=== PATIENT | male | born 1945 | race Caucasian/White ===

== ENCOUNTER 2016-10-23 18:19 | Emergency (ER) | payer MEDICARE ==
[~2016-10-23] VITALS: Ht 177.8 cm; Wt 110.0 kg
[2016-10-23 18:22] VITALS: BP 174/97; PULSE 76; RESP 20; TEMP 98.6; O2SAT 95
[2016-10-23] MEDS ORDERED: LISI-515 PO (21:10)
[2016-10-23] MEDS ORDERED: EFFE150C PO (21:10)
--- NOTE | 2016-10-23 21:55 | PD ---
HPI Chief Complaint: Depression Time Seen by Provider: 21:53 Travel History International Travel<30 days: No Contact w/Intl Traveler<30days: No Traveled to known affect area: No History of Present Illness HPI 71-year-old male with history of hypertension and depression presents to emergency department for evaluation. Patient states that he has had depression since 2010. He was on Effexor 200 mg daily which helped a lot. He states last year him in his primary care provider decided to wean him down and he has not been taking anything since then. He states that he's been going through some stressful times and felt like his depression had gotten worse. He went to [facility] last week to discuss this and he ended up being placed under Gilman act. Patient adamantly denies suicidal homicidal ideations. His is with him who confirms this and that this is not a concern. He was sent to the [facility] psychiatric facility. They started him on 150 mg Effexor there. Patient is concerned because he is not began to feel much better. Denies any suicidal or homicidal ideations. Denies chest or tightness to difficulty breathing. He has no other symptoms to report. PFSH Past Medical History Hx Anticoagulant Therapy: No Arthritis: Yes Depression: Yes Cardiovascular Problems: Yes (HTN) Chemotherapy: No Cerebrovascular Accident: No Diabetes: No Hypertension: Yes Respiratory: No ?: Not Past Surgical History Surgical History: No Previous Surgery Social History Alcohol Use: No Tobacco Use: No Substance Use: No Allergies-Medications (Allergen,Severity, Reaction): Coded Allergies: Aspirin (Verified Allergy, Intermediate, Nausea/Vomiting, 10/23/16) Reported Meds & Prescriptions Reported Meds & Active Scripts Active Reported Effexor XR 24 HR (Venlafaxine HCl) 150 Mg Cap 150 Mg PO DAILY Lisinopril 20 Mg Tab 20 Mg PO DAILY Review of Systems Except as stated in HPI: all other systems reviewed are Neg Physical Exam Narrative GENERAL: Well-nourished male patient, ambulatory and in no acute distress SKIN: Focused skin assessment warm/dry. HEAD: Atraumatic. Normocephalic. EYES: Pupils equal and round. No scleral icterus. No injection or drainage. ENT: No nasal bleeding or discharge. Mucous membranes pink and moist. NECK: Trachea midline. No JVD. CARDIOVASCULAR: Regular rate and rhythm. No murmur appreciated. RESPIRATORY: No accessory muscle use. Clear to auscultation. Breath sounds equal bilaterally. GASTROINTESTINAL: Abdomen soft, non-tender, nondistended. Hepatic and splenic margins not palpable. MUSCULOSKELETAL: No obvious deformities. No clubbing. No cyanosis. No edema. NEUROLOGICAL: Awake and alert. No obvious cranial nerve deficits. Motor grossly within normal limits. Normal speech. Data Data Last Documented VS Vital Signs Date Time Temp Pulse Resp B/P Pulse Ox O2 Delivery O2 Flow Rate FiO2 10/23/16 18:22 98.6 76 20 174/97 95 Room Air MDM Medical Decision Making Medical Screen Exam Complete: Yes Emergency Medical Condition: Yes Medical Record Reviewed: Yes Differential Diagnosis Disorder versus personality disorder versus adjustment reaction disorder versus depression NOS Narrative Course 71-year-old male presents to the emergency department for evaluation, requesting that his Effexor be increased. Patient appears without distress. I discussed with him the importance of a primary care provider psychiatric provider following up with him and adjusting medication as needed. I also offered reassurance that he likely will not feel the effects of the medication for 3-4 weeks. He verbalized understanding. He'll be provided a packet for outpatient resources to contact for follow-up. He agrees to return immediately with any acute worsening symptoms Diagnosis Primary Impression: Depression Qualified Code: F32.9 - Depression, unspecified depression type Referrals: Primary Care Physician Patient Instructions: Depression (ED), General Instructions Additional Instructions: Continue taking medication as prescribed Review resource packet and follow up with psychiatrist/primary care provider Return to ED with acute worsening of symptoms Med/Other Pt SpecificInfo: No Change to Meds Disposition: 01 DISCHARGE HOME Condition: Stable SebastianAdeola ALONSO October 23, 2016 21:55
== END 2016-10-23 22:27 | disposition home or self-care (01) ==
LOC: NEPD 18:19
DX: F32.9 Major depressive disorder, single episode, unspecified (principal); I10 Essential (primary) hypertension
CPT/HCPCS: 99282

== ENCOUNTER 2016-10-25 13:39 | Emergency (ER) | payer MEDICARE ==
[~2016-10-25] VITALS: Ht 177.8 cm; Wt 110.0 kg
[~2016-10-25 13:39] MED LIST: EFFE150C PO; LISI-515 PO
[2016-10-25 13:41] VITALS: BP 174/91; PULSE 76; RESP 15; TEMP 98.4; O2SAT 99
--- NOTE | 2016-10-25 13:46 | PD ---
Physical Exam Time Seen by Provider: 13:42 Narrative 71yo M c/o depression. Takes Effexor and feels like its not working. Denies SI or HI. Has no emergent medical complaints. VS reviewed. Patient seen in triage. Awaiting bed placement. Data Data Last Documented VS Vital Signs Date Time Temp Pulse Resp B/P Pulse Ox O2 Delivery O2 Flow Rate FiO2 10/25/16 13:41 98.4 76 15 174/91 99 MDM Supervised Visit with EMMANUELLE: Marianne Hollis October 25, 2016 13:46
--- NOTE | 2016-10-25 14:45 | PD ---
HPI Chief Complaint: Depression Time Seen by Provider: 14:35 Travel History International Travel<30 days: No Contact w/Intl Traveler<30days: No Traveled to known affect area: No History of Present Illness HPI This is a 71-year-old male with history of hypertension, depression. He presents requesting psychiatric evaluation. He reports a history of depression ever since 2010. Previously he was on Effexor 200 mg daily which seem to be helping a lot. He weaned himself off the Effexor in October 2015. He moved here from [place] in July 2016. He reports for the past 3-4 weeks has been feeling increasing depression. Having difficulty sleeping. This issue at [facility] last week and he ended up being placed under Gilman act and transfer to the [facility]. He reports that at the [facility] he was started on Effexor 150 mg once daily. He was seen here again on October 23 and was encouraged to continue using his Effexor and to follow-up as an outpatient with a psychiatrist. He returns here today because he has been feeling persistent depression, difficulty sleeping. Over the past few nights he has been staying with his cousin in order to "have company." He denies any suicidal or homicidal thoughts but he is primarily here because he does not want things to get to that point. He denies any drug or alcohol use. He has not yet attempted outpatient follow-up with primary care or psychiatry because he "hasn't had time." He has no other complaints. PFSH Past Medical History Hx Anticoagulant Therapy: No Arthritis: Yes Depression: Yes Cardiovascular Problems: Yes (HTN) Chemotherapy: No Cerebrovascular Accident: No Diabetes: No Hypertension: Yes Respiratory: No ?: Not Social History Alcohol Use: No Tobacco Use: No Substance Use: No Allergies-Medications (Allergen,Severity, Reaction): Coded Allergies: Aspirin (Verified Allergy, Intermediate, Nausea/Vomiting, 10/25/16) Reported Meds & Prescriptions Reported Meds & Active Scripts Active Reported Effexor XR 24 HR (Venlafaxine HCl) 150 Mg Cap 150 Mg PO DAILY Lisinopril 20 Mg Tab 20 Mg PO DAILY Review of Systems Except as stated in HPI: all other systems reviewed are Neg Physical Exam Narrative GENERAL: Pleasant well-developed well-nourished male in no acute distress SKIN: Warm and dry. HEAD: Atraumatic. Normocephalic. EYES: Pupils equal and round. No scleral icterus. No injection or drainage. ENT: No nasal bleeding or discharge. Mucous membranes pink and moist. NECK: Trachea midline. No JVD. CARDIOVASCULAR: Regular rate and rhythm. No murmur appreciated. RESPIRATORY: No accessory muscle use. Clear to auscultation. Breath sounds equal bilaterally. GASTROINTESTINAL: Abdomen soft, non-tender, nondistended. Hepatic and splenic margins not palpable. MUSCULOSKELETAL: No obvious deformities. No clubbing. No cyanosis. No edema. NEUROLOGICAL: Awake and alert. No obvious cranial nerve deficits. Motor grossly within normal limits. Normal speech. PSYCHIATRIC: Appropriate mood and affect; insight and judgment normal. Data Data Last Documented VS Vital Signs Date Time Temp Pulse Resp B/P Pulse Ox O2 Delivery O2 Flow Rate FiO2 10/25/16 13:41 98.4 76 15 174/91 99 Orders Complete Blood Count With Diff (10/25/16 14:39) Comprehensive Metabolic Panel (10/25/16 14:39) Psych Screen (10/25/16 14:39) Drug Screen, Random Urine (10/25/16 14:39) Alcohol (Ethanol) (10/25/16 14:39) Labs Laboratory Tests Test 10/25/16 14:55 White Blood Count 12.0 TH/MM3 Red Blood Count 5.31 MIL/MM3 Hemoglobin 15.4 GM/DL Hematocrit 46.1 % Mean Corpuscular Volume 86.8 FL Mean Corpuscular Hemoglobin 29.1 PG Mean Corpuscular Hemoglobin 33.5 % Concent Red Cell Distribution Width 14.1 % Platelet Count 241 TH/MM3 Mean Platelet Volume 8.3 FL Neutrophils (%) (Auto) 71.4 % Lymphocytes (%) (Auto) 18.4 % Monocytes (%) (Auto) 8.3 % Eosinophils (%) (Auto) 1.3 % Basophils (%) (Auto) 0.6 % Neutrophils # (Auto) 8.6 TH/MM3 Lymphocytes # (Auto) 2.2 TH/MM3 Monocytes # (Auto) 1.0 TH/MM3 Eosinophils # (Auto) 0.2 TH/MM3 Basophils # (Auto) 0.1 TH/MM3 CBC Comment DIFF FINAL Differential Comment Sodium Level 137 MEQ/L Potassium Level 4.1 MEQ/L Chloride Level 104 MEQ/L Carbon Dioxide Level 24.3 MEQ/L Anion Gap 9 MEQ/L Blood Urea Nitrogen 17 MG/DL Creatinine 1.08 MG/DL Estimat Glomerular Filtration 67 ML/MIN Rate Random Glucose 114 MG/DL Calcium Level 9.3 MG/DL Total Bilirubin 0.5 MG/DL Aspartate Amino Transf 34 U/L (AST/SGOT) Alanine Aminotransferase 45 U/L (ALT/SGPT) Alkaline Phosphatase 82 U/L Total Protein 7.7 GM/DL Albumin 3.6 GM/DL Ethyl Alcohol Level LESS THAN 3 MG/DL MDM Medical Decision Making Medical Screen Exam Complete: Yes Emergency Medical Condition: Yes Medical Record Reviewed: Yes Differential Diagnosis Major depressive disorder, depressive disorder not otherwise specified, acute psychosis, substance induced mood disorder, adjustment reaction Narrative Course 71-year-old male with history of depression presents for evaluation of worsening depression, difficulty sleeping, currently on Effexor 150 mg started last week. Had a discussion with the patient in regards to the proper place to follow-up for this issue. The patient whether or not she would prefer to follow up with outpatient psychiatry versus psychiatry screening here at this time and he is requesting psychiatric screen. Mental health screening discussed with the patient. Psychiatric screen ordered. The patient is medically cleared for psychiatric disposition. Diagnosis Primary Impression: Depression Qualified Code: F32.9 - Depression, unspecified depression type Ag Pagan October 25, 2016 14:45
[2016-10-25 15:03] LABS: AUTOMATED NEUTROPHIL # 8.6 TH/MM3 (1.8-7.7); BASOPHIL # 0.1 TH/MM3 (0-0.2); BASOPHIL % 0.6 % (0.0-2.0); EOSINOPHIL # 0.2 TH/MM3 (0-0.4); EOSINOPHIL % 1.3 % (0.0-4.0); HEMATOCRIT 46.1 % (39.0-51.0); HEMO FLAGS DIFF FINAL; LYMPH % 18.4 % (9.0-44.0); LYMPHOCYTE # 2.2 TH/MM3 (1.0-4.8); MEAN CELL VOLUME 86.8 FL (80.0-100.0); MEAN CORPUSCULAR HEMOGLOBIN 29.1 PG (27.0-34.0); MEAN CORPUSCULAR HGB CONC 33.5 % (32.0-36.0); MONO % 8.3 % (0.0-8.0); NEUT % 71.4 % (16.0-70.0); PLATELET COUNT 241 TH/MM3 (150-450); RED BLOOD COUNT 5.31 MIL/MM3 (4.50-5.90); RED CELL DISTRIBUTION WIDTH 14.1 % (11.6-17.2)
[2016-10-25 15:24] LABS: ANION GAP 9 MEQ/L (5-15); AST (GOT) 34 U/L (15-37); BICARBONATE 24.3 MEQ/L (21.0-32.0); CHLORIDE 104 MEQ/L (98-107); GLOMERULAR FILTRATION RATE 67 ML/MIN (>89); POTASSIUM 4.1 MEQ/L (3.5-5.1); SODIUM (NA) 137 MEQ/L (136-145)
[2016-10-25 15:28] LABS: ALKALINE PHOSPHATASE 82 U/L (45-117); ALT (GPT) 45 U/L (12-78); BLOOD UREA NITROGEN 17 MG/DL (7-18); TOTAL BILIRUBIN ADULT 0.5 MG/DL (0.2-1.0)
[2016-10-25 17:26] LABS: AMPHETAMINE, URINE NEG (NEG); BARBITURATES, URINE NEG (NEG); COCAINE, URINE NEG (NEG)
[2016-10-25 18:39] VITALS: BP 169/59; PULSE 66; RESP 20; TEMP 96.9
[2016-10-25 22:00] VITALS: BP 167/95; PULSE 60; RESP 18; O2SAT 98
[2016-10-26 02:20] VITALS: BP 130/74; PULSE 58; RESP 19; O2SAT 97
[2016-10-26 06:23] VITALS: BP 156/82; PULSE 61; RESP 19; O2SAT 95
[2016-10-26 11:20] VITALS: BP 159/73; PULSE 69; RESP 20; TEMP 96.7; O2SAT 99
--- NOTE | 2016-10-26 11:52 | PD.CONS ---
Provisional Diagnosis Admission Date 10/26/2016 [place] I. 1. Adjustment disorder with depressed mood [place] II. Deferred [place] V. GAF is 60 presently History of Present Illness Service Psychiatry Consult Requested By ED Reason for Consult Voluntary psychiatric evaluation Primary Care Physician No Primary Care Physician HPI Mr. Ruiz is a 71-year-old male with a reported history of depression who presents on a voluntary basis for psychiatric evaluation. He was recently hospitalized apparently at the [facility]. Reviewing the electronic medical record, I note that he was seen about 3 days ago by the ED provider for psychiatric complaints and was discharged from the ED. Patient seen and examined. Chart reviewed. Case discussed with nurse in the J- pod. There has been no evidence of any suicidality or homicidality what patient has been under observation in the J-pod. On my examination this morning , the patient says that he came here to get something for sleep. He says that his sleep is somewhat chronically poor and his energy level is low and he feels fatigued. Mood is mildly depressed. He denies any suicidal or homicidal ideation, intent or plan on direct questioning. He denies audiovisual hallucinations. I can elicit no delusional beliefs. I can elicit no hypomanic or manic symptoms. He does describe some anxious rumination. The remainder of the psychiatric ROS is negative. Past psychiatric history: Patient reports he was diagnosed with depression in 2010. He is not currently under the care of an outpatient psychiatrist. He was recently discharged from the [facility] on 150 mg of Effexor XR. He denies any history of suicide attempts. Family history: Patient denies any family history of mental illness or suicide. Chemical dependency history: The patient denies a history of abuse of drugs or alcohol. Social history: The patient resides in [place]. He is originally from [place]. He reports that he lives alone and is . He has a daughter from whom he is estranged. He is retired. He is high school educated. 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 He denies any legal history. He denies any access to guns or firearms. Review of Systems Except as stated in HPI: all other systems reviewed are Neg Past Family Social History Coded Allergies: Aspirin (Verified Allergy, Intermediate, Nausea/Vomiting, 10/25/16) Past Medical History Includes a history of renal cancer and hypertension as well as foot deformity Reported Medications Venlafaxine ER 24 HR (Effexor XR 24 HR)150 Mg [id number] Mg PO DAILY #30 CAP Ref 0 10/23/16 Lisinopril 20 Mg Tab20 Mg PO DAILY #30 TAB Ref 0 10/23/16 Family History See above Social History See above Patient's Strengths (min. 2) Attending to basic needs. Verbally fluent. Physical Exam Physical examination completed by ED provider. On my examination today, the patient appears to be in no acute physical distress. He appears well-nourished and well-developed. No evidence of ADL deficit. No abnormal motor movements noted. Labs and vital signs reviewed: Vital Signs Vital Signs Date Time Temp Pulse Resp B/P Pulse Ox O2 Delivery O2 Flow Rate FiO2 10/26/16 11:20 96.7 69 20 159/73 99 Room Air Lab Results Item Value Date Time White Blood Count 12.0 TH/MM3 H 10/25/16 1455 Hemoglobin 15.4 GM/DL 10/25/16 1455 Platelet Count 241 TH/MM3 10/25/16 1455 Sodium Level 137 MEQ/L 10/25/16 1455 Potassium Level 4.1 MEQ/L 10/25/16 1455 Chloride Level 104 MEQ/L 10/25/16 1455 Carbon Dioxide Level 24.3 MEQ/L 10/25/16 1455 Blood Urea Nitrogen 17 MG/DL 10/25/16 1455 Creatinine 1.08 MG/DL 10/25/16 1455 Aspartate Amino Transf (AST/SGOT) 34 U/L 10/25/16 1455 Alanine Aminotransferase (ALT/SGPT) 45 U/L 10/25/16 1455 Alkaline Phosphatase 82 U/L 10/25/16 1455 Urine Opiates Screen NEG 10/25/16 1652 Urine Barbiturates Screen NEG 10/25/16 1652 Urine Amphetamines Screen NEG 10/25/16 1652 Urine Benzodiazepines Screen NEG 10/25/16 1652 Urine Cocaine Screen NEG 10/25/16 1652 Urine Cannabinoids Screen NEG 10/25/16 1652 Ethyl Alcohol Level LESS THAN 3 MG/DL 10/25/16 1455 Mental Status Examination Patient is in hospital gown. He is well groomed. He is maintaining basic hygiene. He is awake and alert and oriented to person, hospital and approximate date. No evidence of delirium. No abnormal motor movements noted. Speech is within normal limits for rate, tone and volume. Language and fund of knowledge seem average. Mood is reportedly somewhat depressed and affect is consistent with stated mood. Thought process linear. No loosening of associations. No evident delusions. Denies audiovisual hallucinations. Denies suicidal or homicidal ideation, intent or plan. Insight and judgment are fair. Assessment & Plan Problem List: (1) Adjustment disorder with depressed mood ICD Code: F43.21 Assessment & Plan This is a 71-year-old male with psychiatric history as detailed above who presents voluntarily to the psychiatric emergency room for evaluation. On my examination today, the patient reports some lingering depressive symptomatology, apparently not fully resolved following his recent discharge from the [facility]. However, the patient is presently denying suicidal or homicidal ideation, intent or plan, and I assess his risk for suicide and violence at lower imminent risk after weighing the acute, chronic, and protective factors and based on the available evidence. He appears to be attending to his basic needs. There is no evidence of any severely unstable mental illness in this patient at this time. Consequently, I do not believe that the patient requires inpatient psychiatric services at this time. He does need to become established with an outpatient psychiatric provider. I have instructed the nursing staff to provide the patient with the appropriate referrals. Patient should continue with his venlafaxine and follow-up on an outpatient basis. I counseled the patient regarding warning signs for me to return to the psychiatric emergency room as part of the general safety plan. Discharge Planning Psychiatrically cleared for discharge from the ED. OP psychiatric follow up. Request HC Surrog/Guard Advoc?: No Gregg Miller MD October 26, 2016 11:52
== END 2016-10-26 15:22 | disposition home or self-care (01) ==
LOC: NEPD 13:39 → NEPJ 10-26 15:22
DX: F32.9 Major depressive disorder, single episode, unspecified (principal); F43.21 Adjustment disorder with depressed mood; I10 Essential (primary) hypertension
CPT/HCPCS: 80053; 80307; 85025; 99283

== ENCOUNTER 2016-10-27 10:20 | Inpatient (IN) | payer MEDICARE ==
[~2016-10-27] VITALS: Ht 182.9 cm; Wt 100.0 kg
[2016-10-27 10:22] VITALS: BP 125/88; PULSE 82; RESP 20; TEMP 97.9; O2SAT 95
[2016-10-27 10:54] VITALS: BP 165/94; PULSE 68; RESP 16; TEMP 97.4; O2SAT 98
--- NOTE | 2016-10-27 13:00 | PD ---
HPI Chief Complaint: Suicide Ideation/Attempt Time Seen by Provider: 12:55 Travel History International Travel<30 days: No Contact w/Intl Traveler<30days: No Traveled to known affect area: No History of Present Illness HPI 71-year-old male that presents to the ED for evaluation of suicidal ideation. Patient has a chronic history of depression. Patient actually has been here 3 times in the past couple weeks. Patient states that he suicidal and has a plan. He denies any chest pain or shortness of breath. He has a chronic-like deformity to his right ankle. Denies any numbness, tilling, weakness. States he has a history of hypertension problems for which he takes medication. He denies any recent injuries. No cuts. Allergies to aspirin. No abdominal pain. No nausea or vomiting. No diarrhea. Patient states that he has a plan but he would not tells wants. He was seen here just 2 days ago and apparently he was concerned about insomnia. Patient was seen by psychiatrist and released. Symptoms appear to be ongoing. PFSH Past Medical History Hx Anticoagulant Therapy: No Arthritis: Yes Depression: Yes Cancer: Yes (LEFT KIDNEY) Cardiovascular Problems: Yes (HTN) Chemotherapy: No Cerebrovascular Accident: No Diabetes: No Hypertension: Yes Respiratory: No Past Surgical History Genitourinary Surgery: Yes (LEFT NEPHRECTOMY) Social History Alcohol Use: No Tobacco Use: No Substance Use: No Allergies-Medications (Allergen,Severity, Reaction): Coded Allergies: Aspirin (Verified Allergy, Intermediate, Nausea/Vomiting, 10/27/16) Reported Meds & Prescriptions Reported Meds & Active Scripts Active Reported Effexor XR 24 HR (Venlafaxine HCl) 150 Mg Cap 150 Mg PO DAILY Lisinopril 20 Mg Tab 20 Mg PO DAILY Review of Systems Except as stated in HPI: all other systems reviewed are Neg Physical Exam Narrative GENERAL: SKIN: Warm and dry. HEAD: Atraumatic. Normocephalic. EYES: Pupils equal and round 4 mm) accommodation. No scleral icterus. No injection or drainage. ENT: No nasal bleeding or discharge. Mucous membranes pink and moist. Tongue is midline. No uvula deviation. NECK: Trachea midline. No JVD. CARDIOVASCULAR: Regular rate and rhythm. No murmurs, S3, S4. RESPIRATORY: No accessory muscle use. Clear to auscultation. Breath sounds equal bilaterally. GASTROINTESTINAL: Abdomen soft, non-tender, nondistended. Hepatic and splenic margins not palpable. MUSCULOSKELETAL: Extremities without clubbing, cyanosis, or edema. No obvious deformities. Full range of motion of the upper and lower extremities bilaterally. 2+ pulses bilaterally. 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 2+ pulses bilaterally. NEUROLOGICAL: Awake and alert. No obvious cranial nerve deficits. Motor grossly within normal limits. Five out of 5 muscle strength in the arms and legs. Normal speech. PSYCHIATRIC: Depressed mood and affect; insight and judgment normal. Data Data Last Documented VS Vital Signs Date Time Temp Pulse Resp B/P Pulse Ox O2 Delivery O2 Flow Rate FiO2 10/27/16 10:54 97.4 68 16 165/94 98 10/27/16 10:22 Room Air Orders Drug Screen, Random Urine (10/27/16 11:26) Psych Screen (10/27/16 11:26) MDM Medical Decision Making Medical Screen Exam Complete: Yes Emergency Medical Condition: Yes Medical Record Reviewed: Yes Differential Diagnosis Depression versus suicidal ideation versus anxiety versus adjustment disorder versus mood disorder versus bipolar disorder versus schizophrenia versus paranoid disorder versus psychosis versus substance abuse versus alcohol abuse versus alcohol induced psychosis versus homicidality addition versus cutting versus personality disorder Narrative Course 71-year-old male that presents to the ED for evaluation of psych. Patient was properly examined and was found to have signs and symptoms consistent with psychiatric illness. No sign of acute medical distress. Patient was just seen here 2 days ago. Patient had normal blood work. I do not see any need for new labs other than drug screen as patient has not been here more than 2 days ago. Patient also had blood work done 2 days prior to that which was all normal. Patient will be medically clear. Okay to be seen by psych.Mental health screening was discussed with the patient. 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
[2016-10-27 16:46] VITALS: BP 129/66; PULSE 65; RESP 18; O2SAT 98
[2016-10-27 17:00] VITALS: BP 174/107; PULSE 68; RESP 18; TEMP 97.7; O2SAT 97
[2016-10-27 17:04] VITALS: BP 174/107; PULSE 68; RESP 18; TEMP 97.7; O2SAT 97
[2016-10-27] MEDS ORDERED: cloNIDine HCL 0.2 MG TAB PO ONE (17:15)
[2016-10-27] MEDS ORDERED: LORazepam 2 MG/ML VIAL - age > 65 yrs IM PRN (18:00)
[2016-10-27] MEDS ORDERED: ACETAMINOPHEN 325 MG TAB PO PRN (18:00)
[2016-10-27] MEDS ORDERED: ALUMINUM/MAGNESIUM/SIMETH 30 ML CUP PO PRN (18:00)
[2016-10-27] MEDS ORDERED: diphenhydrAMINE HCL 50 MG/ML VIAL - HS PRN IM (18:00)
[2016-10-27] MEDS ORDERED: MAGNESIUM HYDROXIDE SUSP 30 ML CUP PO PRN (18:00)
[2016-10-27 18:03] VITALS: BP 149/76; PULSE 70
[2016-10-27] MEDS: diphenhydrAMINE HCL 50 MG CAP - HS PRN PO (21:23)
[2016-10-28 05:26] VITALS: BP 133/79; PULSE 69; TEMP 98.2; O2SAT 97
[2016-10-28] MEDS: VENLAFAXINE HCL XR 75 MG CAP PO SCH (08:09)
[2016-10-28] MEDS ORDERED: LISINOPRIL 20 MG TAB PO SCH (09:00)
[2016-10-28 10:56] LABS: ANION GAP 9 MEQ/L (5-15); BICARBONATE 25.8 MEQ/L (21.0-32.0); BLOOD UREA NITROGEN 23 MG/DL (7-18); CHLORIDE 103 MEQ/L (98-107); GLOMERULAR FILTRATION RATE 58 ML/MIN (>89); POTASSIUM 4.1 MEQ/L (3.5-5.1); SODIUM (NA) 138 MEQ/L (136-145)
[2016-10-28 10:58] LABS: HDL CHOLESTEROL 30.1 MG/DL (40.0-60.0); LDL CHOLESTEROL 95 MG/DL (0-99)
[2016-10-28 13:15] LABS: HEMOGLOBIN A1b 2.2 %; HEMOGLOBIN Ao 82.2 %; HEMOGLOBIN LA1C 2.6 %; HEMOGLOBIN P3 4.2 %
[2016-10-28] MEDS ORDERED: MAGNESIUM HYDROXIDE SUSP 30 ML CUP PO PRN (13:45)
[2016-10-28] MEDS ORDERED: ACETAMINOPHEN 325 MG TAB PO PRN (13:45)
[2016-10-28] MEDS ORDERED: hydrOXYzine HCL 50 MG TAB PO PRN (13:45)
[2016-10-28] MEDS ORDERED: ALUMINUM/MAGNESIUM/SIMETH 30 ML CUP PO PRN (13:45)
[2016-10-28] MEDS ORDERED: VENLAFAXINE HCL XR 75 MG CAP PO SCH (14:00)
--- NOTE | 2016-10-28 14:02 | HHI.HP ---
Provisional Diagnosis Admission Date October 27, 2016 at 16:43 [place]. 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 Express and informed consent means consent voluntarily given in writing, by a competent person, after sufficient explanation and disclosure of the subject matter involved to enable the person to make a knowing and willful decision without any element of force, fraud, deceit, duress, or other form of constraint or coercion. This person is 18 years of age or older, is not now known to be incompetent to consent to treatment with a guardian advocate, and does not have a health care surrogate or proxy currently making medical treatment decisions. I have found this person to be one of the following: xx[] Competent to provide express and informed consent, as defined above, for voluntary admission to this facility and is competent to provide express and informed consent for treatment. He/she has the consistent capacity to make well reasoned, willful, and knowing decisions concerning his or her medical or mental health treatment. The person fully and consistently understands the purpose of the admission for examination/placement and is fully capable of personally exercising all rights assured under [place] Incompetent to provide express and informed consent to voluntary admission, and this is incompetent to provide express and informed consent to treatment. The person must be transferred to involuntary status and a petition for a guardian advocate filed with the Circuit Court. [] Refusing to provide express and informed consent to voluntary admission but is competent to provide express and informed consent for treatment. The person must be discharged or transferred to involuntary status. Form shall be completed within 24 hours of a person's arrival at the receiving facility and filed in the clinical record of each person: 1. Admitted on a voluntary basis 2. Permitted to provide express and informed consent to his/her own treatment 3. Allowed to transfer from involuntary to voluntary status 4. Prior to permitting a person to consent to his or her own treatment after having been previously found incompetent to consent to treatment. History of Present Illness Capacity: Has Capacity HPI Patient is 71-year-old white male who moved here from [place] about 7 months ago to be closer to family. He also has a history of depression had fair response with 20 and 20 mg of Effexor over a number of years. In conjunction with his clinician he weaned himself off of that medication. There is been stress with him with the of his second estrangement from his daughter and the move. This is led to recurrence of his depression and reinstitution of the Effexor a few weeks ago the dose now at 150 mg. However the patient states he has had continued depression with intermittent suicidal ideation, marked initial and mid insomnia with a.m. anergy, decreased energy increased irritability, though he denies voices or visions with this he denies any alcohol or drug use with this. He was initially seen at [facility] a few weeks ago leading to a 1 week stay at [facility] which he said was not helpful at all, he has had multiple visits to our ED and was seen by Dr. Miller in consultation a few days ago and released. However at this time he says he is feeling much more fragile though denying suicidality now. He does state the sleep issues are becoming more more prevalent with. Patient denies any prior physical or sexual abuse, denies any history of alcohol or drug abuse, denies any family history of mental illness. At the present time patient does meet criteria for a brief inpatient psychiatric hospitalization to help stabilize and assess his medications, to further assess his suicidality. We will continue his Effexor at 150 mg daily, will add Elavil 25 mg at at bedtime, will have her [facility] assess patient for possibility of improving or repairing or replacing his brace. Patient states he has seen an orthopedist in [place] who was in the process of evaluating him for some type of surgical repair on his right ankle Review of Systems Constitutional: DENIES: Diaphoretic episodes, Fatigue, Fever, Weight gain, Weight loss, Chills, Dizziness, Change in appetite, Night Sweats Endocrine: DENIES: Heat/cold intolerance, Polydipsia, Polyuria, Polyphagia Eyes: DENIES: Blurred vision, Diplopia, Eye inflammation, Eye pain, Vision loss , Photosensitivity, Double Vision Ears, nose, mouth, throat: DENIES: Tinnitus, Hearing loss, Vertigo, Nasal discharge, Oral lesions, Throat pain, Hoarseness, Ear Pain, Running Nose, Epistaxis, Sinus Pain, Toothache, Odynophagia Respiratory: DENIES: Apneas, Cough, Snoring, Wheezing, Hemoptysis, Sputum production, Shortness of breath Cardiovascular: DENIES: Chest pain, Palpitations, Syncope, Dyspnea on Exertion , PND, Lower Extremity Edema, Orthopnea, Claudication Gastrointestinal: DENIES: Abdominal pain, Black stools, Bloody stools, Constipation, Diarrhea, Nausea, Vomiting, Difficulty Swallowing, Anorexia Genitourinary: DENIES: Sexual dysfunction, Urinary frequency, Urinary incontinence, Urgency, Hematuria, Dysuria, Nocturia, Penile Discharge, Testicular Pain, Testicular Swelling Musculoskeletal: DENIES: Joint pain, Muscle aches, Stiffness, Joint Swelling, Back pain, Neck pain Integumentary: DENIES: Abnormal pigmentation, Nail changes, Pruritus, Rash Hematologic/lymphatic: DENIES: Bruising, Lymphadenopathy Immunologic/allergic: DENIES: Eczema, Urticaria Neurologic: DENIES: Abnormal gait, Headache, Localized weakness, Paresthesias, Seizures, Speech Problems, Tremor, Poor Balance Psychiatric: COMPLAINS OF: Depression, Suicidal Ideation Past Psych History Psychological trauma history Denies physical or sexual abuse Violence risk - others (6 mos) Low Violence risk - self (6 mos) Low Substance Abuse History Drugs/Alcohol past 12 months Denies Past Family Social History Coded Allergies: Aspirin (Verified Allergy, Intermediate, Nausea/Vomiting, 10/27/16) Past Medical History Patient medically cleared ED Reported Medications Venlafaxine ER 24 HR (Effexor XR 24 HR)150 Mg Aoi136 Mg PO DAILY #30 CAP Ref 0 10/23/16 Lisinopril 20 Mg Tab20 Mg PO DAILY #30 TAB Ref 0 10/23/16 Current Medications Medications (Trade) Dose Ordered Sig/Patty Route Start Time Stop Time Status Last Admin (Ativan) 0.5 mg Q12H PRN PO 10/27/16 18:00 (Ativan Inj) 0.5 mg Q12H PRN IM 10/27/16 18:00 (Benadryl) 50 mg HS PRN PO 10/27/16 18:00 10/27/16 21:23 (Benadryl Inj) 50 mg HS PRN IM 10/27/16 18:00 (Tylenol) 650 mg Q4H PRN PO 10/27/16 18:00 (Milk Of Magnesia Liq) 30 ml DAILY PRN PO 10/27/16 18:00 (Mag-Al Plus Susp Liq) 30 ml Q6H PRN PO 10/27/16 18:00 (Prinivil) 20 mg DAILY PO 10/28/16 09:00 10/28/16 08:09 (Effexor Xr) 150 mg DAILY PO 10/28/16 09:00 10/28/16 08:09 Family History No history mental health or addictions and family Social History Patient once once has adult daughter he is somewhat estranged from Patient's Strengths (min. 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 he is calm cooperative with good eye contact occasional small smile Appearance Somewhat scruffy appearance Speech: Unremarkable Orientation: x3 Memory: Unremarkable Thought Process: Logical, Organized Thought Content: Unremarkable Language [place] [employer] Good Hallucination Type: None Attention and Concentration: Good Suicidal Ideation: Yes (has had some vague intermittent suicidal ideation denying at the present time) Previous Suicide Attempts: No Homicidal Ideation: No Previous Homicide Attempts: No Insight: Fair Affect: Other (good range intensity) Mood: Euthymic (to moderately dysphoric) Motor Activity: Abnormal gait-specify (patient is abnormal right ankle) Assessment & Plan Problem List: (1) Major depressive disorder, recurrent severe without psychotic features ICD Code: F33.2 Assessment & Plan Estimated LOS: 3-4 days patient meets criteria for brief inpatient stay to address his medications and assess his suicidality. Continue medications, adding Elavil 25 mg at at bedtime, also have the [facility] assess patient's right ankle Discharge Planning To be determined Request HC Surrog/Guard Advoc?: David Berrios MD October 28, 2016 14:02
[2016-10-28] MEDS: LISINOPRIL 20 MG TAB PO SCH (16:05)
--- NOTE | 2016-10-28 16:25 | PD.CONS ---
[facility]ry team Reason for Consult Assist with medical management, hypertension Primary Care Physician No Primary Care Physician Diagnoses: History of Present Illness Patient is a 71-year-old male with primary medical history of depression, hypertension, hx broken right ankle/ deformed with Sadia brace, who came in to the hospital for depression and evaluation of suicidal ideation. Patient states that he has history of depression after his has been on Effexor has been working well and has been weaned off of the medication and feels like he is back to being depressed again. States that he wrote a letter to his brother about his plan of ending his life. He verified that he has a history of high blood pressure and takes lisinopril. States that he has been well controlled. States that the variation of his blood pressure since he came in is unreliable. Denies pain and discomfort. Denies SOB/ dyspnea. Denies chest pain, palpitations, headaches, dizziness. Denies fevers, chills, n/v/d. Denies hematuria, dysuria. Patient reports history of left kidney cancer which has been encapsulated did he underwent left nephrectomy. PET scans have been done and states as per his MD he is doing well. Review of Systems Except as stated in HPI: all other systems reviewed are Neg Past Family Social History Allergies: Coded Allergies: Aspirin (Verified Allergy, Intermediate, Nausea/Vomiting, 10/27/16) Past Medical History Depression Hypertension Left kidney cancer Arthritis Past Surgical History Left nephrectomy secondary to kidney cancer, no radiation no chemotherapy Reported Medications Reported Meds & Active Scripts Active Reported Effexor XR 24 HR (Venlafaxine HCl) 150 Mg Cap 150 Mg PO DAILY Lisinopril 20 Mg Tab 20 Mg PO DAILY Active Ordered Medications Current Medications Medications (Trade) Dose Ordered Sig/Patty Route Start Time Stop Time Status Last Admin (Ativan) 0.5 mg Q12H PRN PO 10/27/16 18:00 (Ativan Inj) 0.5 mg Q12H PRN IM 10/27/16 18:00 (Benadryl) 50 mg HS PRN PO 10/27/16 18:00 10/27/16 21:23 (Benadryl Inj) 50 mg HS PRN IM 10/27/16 18:00 (Tylenol) 650 mg Q4H PRN PO 10/27/16 18:00 (Milk Of Magnesia Liq) 30 ml DAILY PRN PO 10/27/16 18:00 (Mag-Al Plus Susp Liq) 30 ml Q6H PRN PO 10/27/16 18:00 (Prinivil) 20 mg DAILY PO 10/28/16 09:00 10/28/16 08:09 (Effexor Xr) 150 mg DAILY PO 10/28/16 09:00 10/28/16 08:09 (Tylenol) 650 mg Q4H PRN PO 10/28/16 13:45 (Milk Of Magnesia Liq) 30 ml DAILY PRN PO 10/28/16 13:45 (Mag-Al Plus Susp Liq) 30 ml Q6H PRN PO 10/28/16 13:45 (Atarax) 50 mg Q6H PRN PO 10/28/16 13:45 (Elavil) 25 mg HS PO 10/28/16 21:00 (Prinivil) 20 mg DAILY PO 10/28/16 14:00 Family History Mother of cancer Father had colon cancer, congestive heart failure Social History Denies alcohol use Denies tobacco use Mrs. drug use Physical Exam Vital Signs Vital Signs Date Time Temp Pulse Resp B/P Pulse Ox O2 Delivery O2 Flow Rate FiO2 10/28/16 05:26 98.2 69 133/79 97 10/27/16 18:03 70 149/76 10/27/16 17:04 97.7 68 18 174/107 97 10/27/16 17:00 97.7 68 18 174/107 97 10/27/16 16:46 65 18 129/66 98 Physical Exam GENERAL: This is an over weight, well-developed patient, in no apparent distress. SKIN: No rashes, ecchymoses or lesions. Cool and dry. HEAD: Normocephalic. No temporal or scalp tenderness. EYES: Pupils equal round and reactive. No scleral icterus. No injection or drainage. ENT: Nose without bleeding. Throat without erythema. Uvula midline. Airway patent. NECK: Trachea midline. No JVD or lymphadenopathy. CARDIOVASCULAR: Regular rate and rhythm without murmurs, gallops, or rubs. RESPIRATORY: Clear to auscultation. Breath sounds equal bilaterally. No wheezes , rales, or rhonchi. GASTROINTESTINAL: Abdomen soft, non-tender, obese. Bowel sounds active 4 MUSCULOSKELETAL: Extremities without clubbing, cyanosis, or edema. Right ankle deformity. NEUROLOGICAL: Awake and alert. Oriented to self, place, time. Motor and sensory grossly within normal limits. Normal speech. Laboratory Laboratory Tests Test 10/28/16 09:46 Sodium Level 138 Potassium Level 4.1 Chloride Level 103 Carbon Dioxide Level 25.8 Anion Gap 9 Blood Urea Nitrogen 23 Creatinine 1.23 Estimat Glomerular Filtration 58 Rate Random Glucose 191 Hemoglobin A1c 7.5 Calcium Level 8.9 Triglycerides Level 255 Cholesterol Level 176 LDL Cholesterol 95 HDL Cholesterol 30.1 Cholesterol/HDL Ratio 5.84 Result Diagram: 10/28/16 0946 Assessment and Plan Problem List: (1) Major depressive disorder, recurrent severe without psychotic features ICD Code: F33.2 Status: Acute (2) Depression ICD Code: F32.9 Status: Acute (3) New onset type 2 diabetes mellitus ICD Code: E11.9 Status: Acute (4) HTN (hypertension) ICD Code: I10 Status: Chronic Assessment and Plan Patient is a 71-year-old male with primary medical history of depression, hypertension, hx broken right ankle/ deformed with Sadia brace, who came in to the hospital for depression and evaluation of suicidal ideation. Patient states that he has history of depression after his has been on Effexor has been working well and has been weaned off of the medication and feels like he is back to being depressed again. States that he wrote a letter to his brother about his plan of ending his life. He verified that he has a history of high blood pressure and takes lisinopril. States that he has been well controlled. States that the variation of his blood pressure since he came in is unreliable. Denies pain and discomfort. Denies SOB/ dyspnea. Denies chest pain, palpitations, headaches, dizziness. Denies fevers, chills, n/v/d. Denies hematuria, dysuria. Depression, suicidal ideation - managed by psychiatry team HTN - Resume home medication lisinopril 20 mg daily - Monitor BP trend New-onset diabetes mellitus - Hemoglobin A1c 7.5 - Patient was never diagnosed with diabetes. - hospice educator - Metformin 500 mg twice a day - Insulin sliding scale. Monitor blood glucose. - Monitor for hypoglycemia Right ankle deformity - Patient is being followed by orthopedics an outpatient for a repair of the ankle DVT prop early ambulation Thank you for this consultation. We will follow patient with you. Written by Abram Elizondo, acting as scribe for Dr. Jennings on 10/28/16 at 16: 25. This note was transcribed by scribe Abram Elizondo. I, Dr. Zeke Jennings personally performed the history, physical exam, and medical decision making; and confirmed the accuracy of the information in the transcribed note. Authenticated by Dr. Zeke Jennings on 10/28/16 at 16:46. Code Status Full code Discussed Condition With Patient, nursing Problem Qualifiers (1) Depression: Qualified Code: F33.1 - Moderate episode of recurrent major depressive disorder Abram Gonzalez October 28, 2016 16:25 Zeke Jennings DO October 28, 2016 16:46
[2016-10-28] MEDS ORDERED: GLUCAGON 1 MG/ML VIAL OTHER PRN (16:45)
[2016-10-28] MEDS ORDERED: DEXTROSE 50% IN WATER 50 ML VIAL(D50) IV PUSH PRN (16:45)
[2016-10-28] MEDS ORDERED: cloNIDine HCL 0.1 MG TAB PO PRN (16:45)
[2016-10-28] MEDS: metFORMIN HCL 500 MG TAB PO SCH (17:17)
[2016-10-28 18:00] VITALS: BP 145/91; PULSE 67; RESP 18; TEMP 97.1; O2SAT 95
[2016-10-28] MEDS: AMITRIPTYLINE HCL 25 MG TAB PO SCH (20:34)
[2016-10-28] MEDS: diphenhydrAMINE HCL 50 MG CAP - HS PRN PO (20:38)
[2016-10-28] MEDS: INSULIN ASPART SUPPLEMENTAL SCALE SQ SCH (21:00)
[2016-10-29 05:24] VITALS: BP 116/75; PULSE 65; RESP 16; TEMP 96.8; O2SAT 96
[2016-10-29] MEDS: INSULIN ASPART SUPPLEMENTAL SCALE SQ SCH ×4 (06:13→20:35)
[2016-10-29] MEDS: LISINOPRIL 20 MG TAB PO SCH (08:09)
[2016-10-29] MEDS: VENLAFAXINE HCL XR 75 MG CAP PO SCH (08:09)
[2016-10-29] MEDS: metFORMIN HCL 500 MG TAB PO SCH ×2 (08:09→17:19)
--- NOTE | 2016-10-29 11:04 | HHI.PYPN ---
Subjective Remarks Patient seen and examined with nurse in weekend coverage. Chart reviewed. Case discussed with nursing staff reports that the patient slept well overnight with Elavil. He was quite distressed I am told in learning that he has a new diagnosis of diabetes last evening. For me today, the patient seems to be processing this new information well. He describes his mood as "okay." He denies any suicidal ideation. He denies any audiovisual hallucinations. He does report that he slept very well last night but did experience some grogginess this morning. He also complains of some dry mouth from medications but otherwise denies side effects. Review of Systems Except as stated in HPI: all other systems reviewed are Neg Objective Alert: Yes [place]: Person, Place, Date, Situation Mood: Depressed (perhaps improving) Affect: Appropriate Memory Intact: Comment (not formally assessed but seems at least fair on clinical exam) Hallucinations: Other (denies AVH) Delusions: No Delusion Type: Other (no delusions) Suicidal: Ideation (denies suicidal ideation) Homicidal: Ideation (no homicidal ideation) Insight/Judgment Fair Remarks No abnormal motor movements noted. Thought process linear. Speech within normal limits for rate, tone and volume. Labs Labs reviewed. Vitals/IOs Vital Signs Date Time Temp Pulse Resp B/P Pulse Ox O2 Delivery O2 Flow Rate FiO2 10/29/16 05:24 96.8 65 16 116/75 96 10/27/16 10:22 Room Air Assessment & Plan Problem List: (1) Major depressive disorder, recurrent severe without psychotic features ICD Code: F33.2 Assessment & Plan Continue Elavil augmenting Effexor as ordered. Could consider moving the Elavil dose earlier in the evening if morning grogginess remains prominent. Biotene mouthwash as needed for dry mouth. I have also recommended sugar-free hard candies for management of this side effect after discharge. Hospitalist hospice consultant input noted and appreciated. Continue other medications and care as ordered. Justification for Cont. Inpt. High risk for decompensation in a less restrictive environment pending psychiatric stabilization. Discharge Planning Per Dr. Ramos Request HC Surrog/Guard Advoc?: No Gregg Miller MD October 29, 2016 11:04
--- NOTE | 2016-10-29 15:49 | HHI.PR ---
Subjective Remarks Follow-up visit HTN, diabetes new onset. Patient seen and examined today. Receptive regarding diabetes. Family history verified with patient that some family members has diabetes. States his doing well. Had loose stools 1 today. Discuss with patient side effects of metformin use. Denies pain and discomfort. Denies SOB/ dyspnea. Denies chest pain, palpitations, headaches, dizziness. Denies fevers, chills, n/v. Denies hematuria, dysuria. Objective Vitals Vital Signs Date Time Temp Pulse Resp B/P Pulse Ox O2 Delivery O2 Flow Rate FiO2 10/29/16 05:24 96.8 65 16 116/75 96 10/28/16 18:00 97.1 67 18 145/91 95 Result Diagram: 10/28/16 0946 Objective Remarks GENERAL: This is an over weight, well-developed patient, in no apparent distress. SKIN: No rashes, ecchymoses or lesions. Cool and dry. HEAD: Normocephalic. No temporal or scalp tenderness. EYES: Pupils equal round and reactive. No scleral icterus. No injection or drainage. ENT: Nose without bleeding. Throat without erythema. Uvula midline. Airway patent. NECK: Trachea midline. No JVD or lymphadenopathy. CARDIOVASCULAR: Regular rate and rhythm without murmurs, gallops, or rubs. RESPIRATORY: Clear to auscultation. Breath sounds equal bilaterally. No wheezes , rales, or rhonchi. GASTROINTESTINAL: Abdomen soft, non-tender, obese. Bowel sounds active 4 MUSCULOSKELETAL: Extremities without clubbing, cyanosis, or edema. Right ankle deformity. NEUROLOGICAL: Awake and alert. Oriented to self, place, time. Motor and sensory grossly within normal limits. Normal speech. A/P Problem List: (1) Major depressive disorder, recurrent severe without psychotic features ICD Code: F33.2 Status: Acute (2) Depression ICD Code: F32.9 Status: Acute (3) New onset type 2 diabetes mellitus ICD Code: E11.9 Status: Acute (4) HTN (hypertension) ICD Code: I10 Status: Chronic Assessment and Plan Patient is a 71-year-old male with primary medical history of depression, hypertension, hx broken right ankle/ deformed with Sadia brace, who came in to the hospital for depression and evaluation of suicidal ideation. Patient states that he has history of depression after his has been on Effexor has been working well and has been weaned off of the medication and feels like he is back to being depressed again. States that he wrote a letter to his brother about his plan of ending his life. He verified that he has a history of high blood pressure and takes lisinopril. States that he has been well controlled. States that the variation of his blood pressure since he came in is unreliable. Denies pain and discomfort. Denies SOB/ dyspnea. Denies chest pain, palpitations, headaches, dizziness. Denies fevers, chills, n/v/d. Denies hematuria, dysuria. Depression, suicidal ideation - managed by psychiatry team HTN - Resume home medication lisinopril 20 mg daily - Monitor BP trend New-onset diabetes mellitus - Hemoglobin A1c 7.5 - Patient was never diagnosed with diabetes. - coding educator - Metformin 500 mg twice a day. Discussed with patient side effects of metformin but because he is on low-dose small side effects can usually be tolerated. - Insulin sliding scale. Monitor blood glucose. - Monitor for hypoglycemia - Check BMP in a few days Right ankle deformity - Patient is being followed by orthopedics an outpatient for a repair of the ankle ASCVD risk 10 year calculated risk 38.1 - Recommended moderate to high intensity statin therapy - Will discuss with patient after diabetic education as patient is now overwhelmed with new diagnosis. DVT prop early ambulation Written by Abram Elizondo, acting as scribe for Dr. Jennings on 10/29/16 at 15:48. Attending Statement This note was transcribed by scribe Abram Elizondo. I, Dr. Zeke Jennings personally performed the history, physical exam, and medical decision making; and confirmed the accuracy of the information in the transcribed note. Authenticated by Dr. Zeke Jennings on 10/29/16 at 16:54. Problem Qualifiers (1) Depression: Qualified Code: F33.1 - Moderate episode of recurrent major depressive disorder Abram Gonzalez October 29, 2016 15:49 Zeke Jennings DO October 29, 2016 16:54
[2016-10-29 17:51] VITALS: BP 114/75; PULSE 64; RESP 18; TEMP 98.6; O2SAT 97
[2016-10-29] MEDS: AMITRIPTYLINE HCL 25 MG TAB PO SCH (20:56)
[2016-10-29] MEDS: diphenhydrAMINE HCL 50 MG CAP - HS PRN PO (20:56)
[2016-10-30 05:02] VITALS: BP 138/70; PULSE 58; RESP 16; TEMP 97.9; O2SAT 97
[2016-10-30] MEDS: INSULIN ASPART SUPPLEMENTAL SCALE SQ SCH ×4 (06:06→21:00)
[2016-10-30] MEDS: LORazepam 0.5 MG TAB age > 65 yrs PO PRN (07:48)
[2016-10-30] MEDS: VENLAFAXINE HCL XR 75 MG CAP PO SCH (08:15)
[2016-10-30] MEDS: metFORMIN HCL 500 MG TAB PO SCH ×2 (08:15→17:16)
[2016-10-30] MEDS: LISINOPRIL 20 MG TAB PO SCH (08:16)
--- NOTE | 2016-10-30 13:14 | HHI.PYPN ---
Subjective Remarks Patient was seen today for psychiatric evaluation, he was found in the campos in his wheelchair, he reports kind of improved mood, more motivated, hopeful to get better, still depressed, having hard time to sleep at night, he has been having ambivalent and ruminating suicidal thoughts, no specific plan. He contracts for safety in the unit. He denies visual and auditory hallucinations , he denies homicidal ideation. He is fully oriented 3, compliant with medications, no significant side effects. Review of Systems Other Patient doesn't have any somatic complaints Objective Alert: Yes [place]: Person, Place, Date, Situation Mood: Depressed (perhaps improving) Affect: Appropriate Memory Intact: Comment (not formally assessed but seems at least fair on clinical exam) Hallucinations: Other (denies AVH) Delusions: No Delusion Type: Other (no delusions) Suicidal: Ideation (ambivalent suicidal ideation, no specific plan) Homicidal: Ideation (no homicidal ideation) Insight/Judgment Poor Vitals/IOs Vital Signs Date Time Temp Pulse Resp B/P Pulse Ox O2 Delivery O2 Flow Rate FiO2 10/30/16 05:02 97.9 58 16 138/70 97 10/27/16 10:22 Room Air Assessment & Plan Problem List: (1) Major depressive disorder, recurrent severe without psychotic features Assessment & Plan: Patient continues to show depressive symptoms, will increase amitriptyline to 50 mg at bedtime to help with mood and to help for sleep ICD Code: F33.2 Assessment & Plan Estimated LOS: days Justification for Cont. Inpt. Patient has an elevated risk to decompensate at a lower level of care Request HC Surrog/Guard Advoc?: No Navi Walton MD October 30, 2016 13:14
[2016-10-30 15:37] VITALS: BP 142/82; PULSE 62; RESP 18; TEMP 98.2; O2SAT 97
[2016-10-30 20:00] VITALS: BP 142/82; PULSE 62; RESP 18; TEMP 98.2; O2SAT 97
[2016-10-30] MEDS: AMITRIPTYLINE HCL 25 MG TAB PO SCH (20:57)
[2016-10-31 06:00] VITALS: BP_SYST 118; BP_SYST 135; BP_DIAS 56; BP_DIAS 69; PULSE 65; PULSE 83; RESP 18; TEMP 98; TEMP 98.2; O2SAT 95
[2016-10-31] MEDS: INSULIN ASPART SUPPLEMENTAL SCALE SQ SCH ×4 (07:00→21:00)
[2016-10-31 08:27] LABS: BICARBONATE 24.9 MEQ/L (21.0-32.0); POTASSIUM 4.6 MEQ/L (3.5-5.1)
[2016-10-31] MEDS: LISINOPRIL 20 MG TAB PO SCH (08:38)
[2016-10-31] MEDS: metFORMIN HCL 500 MG TAB PO SCH ×2 (08:38→17:20)
[2016-10-31] MEDS: VENLAFAXINE HCL XR 75 MG CAP PO SCH (08:39)
--- NOTE | 2016-10-31 15:15 | HHI.PYPN ---
Subjective Remarks Patient seen in his room with staff giving him diabetic education. Patient states his mood is somewhat down today with some mild increased anxiety and hopelessness. I encouraged him to show some good judgment midlung medications time to help. He is vague about suicidality today denies voices today Objective Alert: Yes Randle: Person, Place, Date, Situation Mood: Depressed (perhaps improving) Affect: Appropriate Memory Intact: Comment (not formally assessed but seems at least fair on clinical exam) Hallucinations: Other (denies AVH) Delusions: No Delusion Type: Other (no delusions) Suicidal: Ideation (ambivalent suicidal ideation, no specific plan) Homicidal: Ideation (no homicidal ideation) Insight/Judgment Poor Labs Test 10/31/16 07:45 Sodium Level 135 MEQ/L Potassium Level 4.6 MEQ/L Chloride Level 102 MEQ/L Carbon Dioxide Level 24.9 MEQ/L Anion Gap 8 MEQ/L Blood Urea Nitrogen 21 MG/DL Creatinine 1.18 MG/DL Estimat Glomerular Filtration 61 ML/MIN Rate Random Glucose 126 MG/DL Calcium Level 9.3 MG/DL Vitals/IOs Vital Signs Date Time Temp Pulse Resp B/P Pulse Ox O2 Delivery O2 Flow Rate FiO2 10/31/16 06:00 98.2 83 18 118/56 95 10/27/16 10:22 Room Air Assessment & Plan Problem List: (1) Major depressive disorder, recurrent severe without psychotic features ICD Code: F33.2 Assessment & Plan Estimated LOS: days patient continues depressed somewhat labile hopeless. Compliant medications. For now continue treatment Justification for Cont. Inpt. At this time patient decompensate with place to the lower level of care Discharge Planning To be determined Request HC Surrog/Guard Advoc?: No David Ramos MD October 31, 2016 15:15
[2016-10-31 18:00] VITALS: BP 107/51; PULSE 88; RESP 18; TEMP 97.1; O2SAT 99
[2016-10-31] MEDS: AMITRIPTYLINE HCL 25 MG TAB PO SCH (21:30)
[2016-11-01 05:39] VITALS: BP 104/54; PULSE 57; RESP 20; TEMP 98.2; O2SAT 96
[2016-11-01] MEDS: INSULIN ASPART SUPPLEMENTAL SCALE SQ SCH ×4 (06:13→21:00)
[2016-11-01] MEDS: VENLAFAXINE HCL XR 75 MG CAP PO SCH (08:42)
[2016-11-01] MEDS: LISINOPRIL 20 MG TAB PO SCH (08:42)
[2016-11-01] MEDS: metFORMIN HCL 500 MG TAB PO SCH ×2 (08:42→16:47)
[2016-11-01] MEDS: ATORVASTATIN 40 MG TAB PO SCH (13:45)
--- NOTE | 2016-11-01 14:01 | HHI.PR ---
Subjective Remarks Pt being by Hospitalist team to address medical issues. Pt reported feeling "good today." He spoke of having received diabetic education this morning. Pt stated his "sugars are doing ok. I only needed 1 unit of insulin today." Pt denied fever,cough, shortness of breath, nausea, vomiting. or diarrhea. No new issues or concerns raised by pt. Objective Vitals Vital Signs Date Time Temp Pulse Resp B/P Pulse Ox O2 Delivery O2 Flow Rate FiO2 11/01/16 05:39 98.2 57 20 104/54 96 10/31/16 18:00 97.1 88 18 107/51 99 Result Diagram: 10/31/16 0745 Other Results Laboratory Tests Test 10/28/16 10/31/16 09:46 07:45 Hemoglobin A1c 7.5 % Triglycerides Level 255 MG/DL Cholesterol Level 176 MG/DL LDL Cholesterol 95 MG/DL HDL Cholesterol 30.1 MG/DL Cholesterol/HDL Ratio 5.84 RATIO Sodium Level 135 MEQ/L Potassium Level 4.6 MEQ/L Chloride Level 102 MEQ/L Carbon Dioxide Level 24.9 MEQ/L Anion Gap 8 MEQ/L Blood Urea Nitrogen 21 MG/DL Creatinine 1.18 MG/DL Estimat Glomerular Filtration 61 ML/MIN Rate Random Glucose 126 MG/DL Calcium Level 9.3 MG/DL Imaging No imaging ordered or resulted within past 24 hours. Objective Remarks GENERAL: Pt laying a bed, resting, pleasant and cooperative. Not in acute distress. SKIN: Warm and dry. HEAD: Normocephalic. EYES: No scleral icterus. No injection or drainage. NECK: Supple, trachea midline. No JVD or lymphadenopathy. CARDIOVASCULAR: Regular rate and rhythm without murmurs, gallops, or rubs. RESPIRATORY: Breath sounds equal bilaterally. No accessory muscle use. GASTROINTESTINAL: Abdomen soft, non-tender, nondistended. Bowel sounds diminished all quadrants. MUSCULOSKELETAL: No cyanosis, or edema. Right ankle deformity noted. PSYCHIATRIC: pt alert and oriented x3, no overt signs of anxiety or depression. Speech was clear and fluent. Procedures None. Medications and IVs Current Medications Medications (Trade) Dose Ordered Sig/Patty Route Start Time Stop Time Status Last Admin (Ativan) 0.5 mg Q12H PRN PO 10/27/16 18:00 10/30/16 07:48 (Ativan Inj) 0.5 mg Q12H PRN IM 10/27/16 18:00 (Benadryl) 50 mg HS PRN PO 10/27/16 18:00 10/29/16 20:56 (Benadryl Inj) 50 mg HS PRN IM 10/27/16 18:00 (Effexor Xr) 150 mg DAILY PO 10/28/16 09:00 11/01/16 08:42 (Tylenol) 650 mg Q4H PRN PO 10/28/16 13:45 (Milk Of Magnesia Liq) 30 ml DAILY PRN PO 10/28/16 13:45 (Mag-Al Plus Susp Liq) 30 ml Q6H PRN PO 10/28/16 13:45 (Atarax) 50 mg Q6H PRN PO 10/28/16 13:45 (Prinivil) 20 mg DAILY PO 10/28/16 14:00 11/01/16 08:42 (D50w (Vial) Inj) 25 ml UNSCH PRN IV PUSH 10/28/16 16:45 (Glucagon Inj) 1 mg UNSCH PRN OTHER 10/28/16 16:45 (Glucophage) 500 mg BIDPC PO 10/28/16 18:00 11/01/16 08:42 (Catapres) 0.1 mg Q6H PRN PO 10/28/16 16:45 (Elavil) 50 mg HS PO 10/30/16 21:00 10/31/16 21:30 Urinary Catheter: No Vascular Central Line Catheter: No A/P Problem List: (1) Major depressive disorder, recurrent severe without psychotic features ICD Code: F33.2 Status: Acute (2) Depression ICD Code: F32.9 Status: Acute (3) New onset type 2 diabetes mellitus ICD Code: E11.9 Status: Acute (4) HTN (hypertension) ICD Code: I10 Status: Chronic (5) Hypertriglyceridemia without hypercholesterolemia ICD Code: E78.1 Status: Acute Assessment and Plan Patient is a 71-year-old male with primary medical history of depression, hypertension, hx broken right ankle/ deformed with Sadia brace, who came in to the hospital for depression and evaluation of suicidal ideation. Patient states that he has history of depression after his has been on Effexor has been working well and has been weaned off of the medication and feels like he is back to being depressed again. States that he wrote a letter to his brother about his plan of ending his life. He verified that he has a history of high blood pressure and takes lisinopril. States that he has been well controlled. States that the variation of his blood pressure since he came in is unreliable. Denies pain and discomfort. Denies SOB/ dyspnea. Denies chest pain, palpitations, headaches, dizziness. Denies fevers, chills, n/v/d. Denies hematuria, dysuria. Depression, suicidal ideation - managed by psychiatry team HTN - Resume home medication lisinopril 20 mg daily - Monitor BP trend -11/01/16: Pt has been taking lisinopril 20 mg daily, prn clonidine has not been needed to date, New-onset diabetes mellitus - Hemoglobin A1c 7.5 - Patient was never diagnosed with diabetes. - clinical document improvement educator - Metformin 500 mg twice a day - Insulin sliding scale. Monitor blood glucose. - Monitor for hypoglycemia -11/01/16: Pt noted to have been seen by clinical document improvement educator today, BG is trending in the right direction. Limited supplemental insulin has been administered to pt. Continue to monitor. Hypertriglyceridemia without hypercholesterolemia -Labs personally reviewed. Case reviewed with Dr. Vizcarra. Pt with ASCVD score of 32.6%. Dr. Vizcarra advised initiating statin coverage with Lipitor 40 mg. -Discussed cholesterol panel results with pt, his 10 year risk for cardiovascular disease and the need to start statin. Pt was agreeable. Informed pt about possible muscle pain and to advise staff if it develops. Right ankle deformity - Patient is being followed by orthopedics an outpatient for a repair of the ankle DVT prop early ambulation Discharge Planning To be determined by psychiatric team. Problem Qualifiers (1) Depression: Qualified Code: F33.1 - Moderate episode of recurrent major depressive disorder Jose Munoz Jr. November 01, 2016 14:01
--- NOTE | 2016-11-01 15:20 | HHI.PYPN ---
Subjective Remarks Patient was seen today for psychiatric evaluation, he reports improved mood, he says that he feels better, however he has been isolated in his unit, he still has suicidal thoughts, but he denies suicidal ideation, he denies any plan, patient is oriented 3, he is calm, cooperative and pleasant. Review of Systems Other No somatic complaints Objective Alert: Yes Henning: Person, Place, Date, Situation Mood: Calm Affect: Appropriate Memory Intact: Comment (not formally assessed but seems at least fair on clinical exam) Hallucinations: Other (denies AVH) Delusions: No Delusion Type: Other (no delusions) Suicidal: Ideation (he denies suicidal ideation) Homicidal: Ideation (no homicidal ideation) Insight/Judgment Improved Vitals/IOs Vital Signs Date Time Temp Pulse Resp B/P Pulse Ox O2 Delivery O2 Flow Rate FiO2 11/01/16 05:39 98.2 57 20 104/54 96 Assessment & Plan Problem List: (1) Major depressive disorder, recurrent severe without psychotic features Assessment & Plan: Patient shows improvement, we'll continue current psychotropic regimen. ICD Code: F33.2 Assessment & Plan Estimated LOS: days Justification for Cont. Inpt. Patient is to continue psychiatric hospitalization for stabilization Request HC Surrog/Guard Advoc?: No Navi Walton MD November 01, 2016 15:20
[2016-11-01 18:12] VITALS: BP 125/77; PULSE 70; RESP 19; TEMP 98.7; O2SAT 96
[2016-11-01] MEDS: LORazepam 0.5 MG TAB age > 65 yrs PO PRN (21:00)
[2016-11-01] MEDS: AMITRIPTYLINE HCL 25 MG TAB PO SCH (21:01)
[2016-11-02] MEDS: INSULIN ASPART SUPPLEMENTAL SCALE SQ SCH ×2 (06:24→11:00)
[2016-11-02 06:25] VITALS: BP 112/74; PULSE 108; RESP 18; TEMP 97.7; O2SAT 98
[2016-11-02] MEDS: ATORVASTATIN 40 MG TAB PO SCH (08:24)
[2016-11-02] MEDS: VENLAFAXINE HCL XR 75 MG CAP PO SCH (08:24)
[2016-11-02] MEDS: metFORMIN HCL 500 MG TAB PO SCH (08:24)
[2016-11-02] MEDS: LISINOPRIL 20 MG TAB PO SCH (08:24)
[2016-11-02] MEDS ORDERED: CLON.1 PO (09:50)
[2016-11-02] MEDS ORDERED: LISI-515 PO (09:50)
[2016-11-02] MEDS ORDERED: METF500 PO (09:50)
[2016-11-02] MEDS ORDERED: VENL75XR PO (09:50)
[2016-11-02] MEDS ORDERED: NOVOLOGSS SQ (09:50)
[2016-11-02] MEDS ORDERED: ATOR40TA16 PO (09:50)
[2016-11-02] MEDS ORDERED: AMIT1TAB79 PO (09:50)
--- NOTE | 2016-11-02 12:47 | HHI.DS ---
Psychiatry Discharge Summary Inpatient Psychiatric care?: Yes Advance Directive: No Reason Not Provided: Due to Patient Condition Mental Health AdvanceDirective: No Health Care Proxy: Yes Admission Admission Date October 27, 2016 at 16:43 Admission Diagnosis: (1) Major depressive disorder, recurrent severe without psychotic features ICD Code: F33.2 Brief History Patient is 71-year-old white male who moved here from [place] about 7 months ago to be closer to family. He also has a history of depression had fair response with 20 and 20 mg of Effexor over a number of years. In conjunction with his clinician he weaned himself off of that medication. There is been stress with him with the of his second estrangement from his daughter and the move. This is led to recurrence of his depression and reinstitution of the Effexor a few weeks ago the dose now at 150 mg. However the patient states he has had continued depression with intermittent suicidal ideation, marked initial and mid insomnia with a.m. anergy, decreased energy increased irritability, though he denies voices or visions with this he denies any alcohol or drug use with this. He was initially seen at [facility] a few weeks ago leading to a 1 week stay at the [facility] which he said was not helpful at all, he has had multiple visits to our ED and was seen by Dr. Miller in consultation a few days ago and released. However at this time he says he is feeling much more fragile though denying suicidality now. He does state the sleep issues are becoming more more prevalent with. Patient denies any prior physical or sexual abuse, denies any history of alcohol or drug abuse, denies any family history of mental illness. At the present time patient does meet criteria for a brief inpatient psychiatric hospitalization to help stabilize and assess his medications, to further assess his suicidality. We will continue his Effexor at 150 mg daily, will add Elavil 25 mg at at bedtime, will have her [facility] assess patient for possibility of improving or repairing or replacing his brace. Patient states he has seen an orthopedist in [place] who was in the process of evaluating him for some type of surgical repair on his right ankle Tobacco Use In Past 30 Days: No Tobacco Past 30 Days Alcohol Use: Never Hospital Course Patient was admitted in the 26 on the unit due to depressive symptoms. Immediate safety measures were taken. Psychosocial and psychiatric assessment were performed. Patient was initiated in psychotropics, psychotherapy and group therapy. Consult hospitalist were placed to manage underlying medical conditions. Patient showed a very good response to medication regimen and psychotherapy. Effexor and amitriptyline were titrated up as patient could tolerate with a positive response. During his stay in the unit no agitation, no aggressive behavior, were reported. Results Blood Pressure 112 / 74 Vital Signs Date Time Temp Pulse Resp B/P Pulse Ox O2 Delivery O2 Flow Rate FiO2 11/02/16 06:25 97.7 108 18 112/74 98 Laboratory Tests Test 10/31/16 07:45 Sodium Level 135 MEQ/L (136-145) Blood Urea Nitrogen 21 MG/DL (7-18) Estimat Glomerular Filtration 61 ML/MIN (>89) Rate Random Glucose 126 MG/DL (74-106) Summary of Procedures No procedures done Pending results at discharge: No Medications # of Antipsychotic meds at D/C: 0 Approp Antipsych med options 1 - Minimum of three failed multiple trials of monotherapy. 2 - Documented plan to taper to monotherapy due to previous use of multiple meds OR cross-taper in progress at D/C. 3 - Documentation of augmentation of Clozapine. 4 - Justification other than those listed in allowable values 1-3, document here : Discharge Discharge Date: November 02, 2016 Discharge Diagnosis: (1) Major depressive disorder, recurrent severe without psychotic features ICD Code: F33.2 Mental Status Exam at Disch Evidently woman, good hygiene, [facility], wheelchair-bound, calm and cooperative, his his speech is spontaneous and fluent. His mood is "much better", affect is appropriate. Thought content is logical, coherent and relevant. Thought content is devoid of suicidal and homicidal ideation, visual and auditory hallucinations. No paranoia, no delusions, no obsessions present. Psych, impulse control and judgment are good. Memory is intact. Pt Condition on Discharge: Stable Discharge Disposition: Discharge Home Discharge Instructions Diet Instructions: Heart Healthy Diet Activities you can perform: Weight Bearing as Caren Scheduled Appointment: [facility] Appointment Date: Nov 18, 2016 Appointment Time: 08:00am Discharge Time > 30 minutes Discharge/Advance Care Plan Health Problems: (1) Major depressive disorder, recurrent severe without psychotic features Goals to promote your health * To prevent worsening of your condition and complications * To maintain your health at the optimal level Directions to meet your goals Take your medications as prescribed Follow your dietary instruction Follow activity as directed Keep your appointments as scheduled Take your immunizations and boosters as scheduled If your symptoms worsen call your PCP, if no PCP go to Urgent Care Center or Emergency Room For 09/01 questions related to your inpatient stay or results of tests pending at discharge, please contact Dr. Navi Walton at Smoking is Dangerous to Your Health. Avoid second hand smoking Navi Walton MD November 02, 2016 12:47
== END 2016-11-02 14:20 | disposition home or self-care (01) | DRG 885 ==
LOC: NEPJ 10:20 → NEDA 16:43 → H260 16:50
PROVIDERS: ADMIT Psychiatry & Neurology Psychiatry; ATTEND Psychiatry & Neurology Psychiatry
DX: F33.2 Major depressive disorder, recurrent severe without psychotic features (principal); E11.9 Type 2 diabetes mellitus without complications; R45.851 Suicidal ideations; I10 Essential (primary) hypertension; R68.2 Dry mouth, unspecified; S82.891D Other fracture of right lower leg, subsequent encounter for closed fracture with routine healing; E78.1 Pure hyperglyceridemia; M19.90 Unspecified osteoarthritis, unspecified site; F41.9 Anxiety disorder, unspecified; Z83.3 Family history of diabetes mellitus; Z88.6 Allergy status to analgesic agent; Z85.528 Personal history of other malignant neoplasm of kidney; Z90.5 Acquired absence of kidney; Z99.3 Dependence on wheelchair
CPT/HCPCS: 80048; 80061; 82948; 83036; 99284; J1815; Q0163

== ENCOUNTER 2016-11-02 22:29 | Inpatient (IN) | payer MEDICARE, MEDICAID ==
[~2016-11-02] VITALS: Ht 177.8 cm; Wt 113.9 kg
[~2016-11-02 22:29] MED LIST changes: +AMIT1TAB79 PO; +ATOR40TA16 PO; +CLON.1 PO; +METF500 PO; +NOVOLOGSS SQ; +VENL75XR PO
[2016-11-02 22:36] VITALS: BP 120/80; PULSE 75; RESP 18; TEMP 97.6; O2SAT 96
--- NOTE | 2016-11-02 23:14 | PD ---
HPI . Suicidal ideation Chief Complaint: Psychiatric Symptoms Time Seen by Provider: 22:57 Travel History International Travel<30 days: No Contact w/Intl Traveler<30days: No Traveled to known affect area: No History of Present Illness HPI Patient is brought to us under a Gilman Act for suicidal ideation. Patient suffers from depression. He was just discharged from the hospital today for depression with suicidal ideation. Patient states that he had let his dog out this evening. His neighbor subsequently walked over and found him sitting in a chair with a gun threatening to kill himself. The police were called and the patient was subsequently brought here for further evaluation. PFSH Past Medical History Hx Anticoagulant Therapy: No Arthritis: Yes Depression: Yes Cancer: Yes Cardiovascular Problems: No High Cholesterol: Yes Chemotherapy: No Cerebrovascular Accident: No Diabetes: Yes Patient Takes Glucophage: Yes Genitourinary: No Headaches: No Hypertension: Yes Psychiatric: Yes (since 2010 Depression/ Grief) Respiratory: No Seizures: No Tetanus Vaccination: Unknown Influenza Vaccination: No Past Surgical History Genitourinary Surgery: Yes (LEFT NEPHRECTOMY) Social History Alcohol Use: No Tobacco Use: No Substance Use: No Allergies-Medications (Allergen,Severity, Reaction): Coded Allergies: Aspirin (Verified Allergy, Intermediate, Nausea/Vomiting, 11/02/16) Reported Meds & Prescriptions Reported Meds & Active Scripts Active Novolog Inj (Insulin Aspart) 100 Unit/Ml Inj 100 Unit SQ ACHS SLIDING SCALE Effexor XR 24 HR (Venlafaxine HCl) 75 Mg Cap 150 Mg PO DAILY Glucophage (Metformin HCl) 500 Mg Tab 500 Mg PO BIDPC Lisinopril 20 Mg Tab 20 Mg PO DAILY Catapres (Clonidine) 0.1 Mg Tab 0.1 Mg PO Q6H PRN Atorvastatin (Atorvastatin Calcium) 40 Mg Tab 40 Mg PO DAILY Elavil (Amitriptyline HCl) 25 Mg Tab 50 Mg PO HS Reported Effexor XR 24 HR (Venlafaxine HCl) 150 Mg Cap 150 Mg PO DAILY Review of Systems Except as stated in HPI: all other systems reviewed are Neg Psychiatric: Positive: Depression, Suicidal Ideations, Mood Disorder Physical Exam Narrative GENERAL: Awake and alert and in no acute distress. SKIN: Warm and dry. HEAD: Atraumatic. Normocephalic. EYES: Pupils equal and round. NECK: Trachea midline. CARDIOVASCULAR: Regular rate and rhythm. RESPIRATORY: No accessory muscle use. MUSCULOSKELETAL: No obvious deformities. No edema. NEUROLOGICAL: Awake and alert. No obvious cranial nerve deficits. Motor grossly within normal limits. Normal speech. PSYCHIATRIC: Depressed mood. Frustrated affect. Poor judgment. Data Data Last Documented VS Vital Signs Date Time Temp Pulse Resp B/P Pulse Ox O2 Delivery O2 Flow Rate FiO2 11/02/16 22:36 97.6 75 18 120/80 96 MDM Medical Decision Making Medical Screen Exam Complete: Yes Emergency Medical Condition: Yes Differential Diagnosis Differential diagnosis includes but is not limited to depression with suicidal gesture, suicide attempt, suicidal ideation, attention seeking behavior. Narrative Course Patient presents to us as a Gilman Act for suicidal ideation. The patient was just hospitalized for same and discharged today. He does not need any any medical clearance labs. He is medically clear for psychiatric evaluation. Diagnosis Primary Impression: Major depressive disorder, recurrent severe without psychotic features Condition: Stable Carly Cervantes MD November 02, 2016 23:14
[2016-11-03 03:00] VITALS: BP 112/74; PULSE 68; RESP 18; O2SAT 95
[2016-11-03 07:40] VITALS: BP 127/80; PULSE 63; RESP 14; TEMP 97.9; O2SAT 93
--- NOTE | 2016-11-03 13:08 | PD ---
History of Present Illness Chief Complaint: Psychiatric Symptoms Time Seen by Provider: 11:00 Travel History International Travel<30 Days: No Contact w/Intl Traveler<30days: No Known affected area: No Legal Status Legal Status: Gilman Act Gilman Act Signed By: Octavio Sykes History of Present Illness: 71-year-old male who was released from the hospital here at [place], psychiatry unit, less than one day ago. Patient was Gilman acted for threatening to shoot himself. Patient admits he did this but also admits he does not have a gun at home. Apparently the gun is either with a neighbor or with law enforcement. Patient admits to multiple symptoms of depressed mood, anhedonia, suicidal ideation, diminished energy, social withdrawal, and anxiety. This physician spent approximately 1 hour with patient discussing various options, including readmitting patient, stabilizing him on medication and finding placement for him in an adult living facility. Patient was vehemently against that idea. We then called patient's brother to see if patient could move to [place]. Patient's brother states patient is financially irresponsible even though he has a income of $2000 per month. Patient's brother does not want patient to move to the [place] area and brother risks tired of caring for patient. This physician spoke to patient about returning home and always having the option of returning to ED if it does not work out at home. Patient chose this option and again remarks "I would never kill myself". PFSH Past Medical History Hx Anticoagulant Therapy: No Arthritis: Yes Depression: Yes Cancer: Yes Cardiovascular Problems: No High Cholesterol: Yes Chemotherapy: No Cerebrovascular Accident: No Diabetes: Yes Patient Takes Glucophage: Yes Genitourinary: No Headaches: No Hypertension: Yes Psychiatric: Yes (since 2010 Depression/ Grief) Respiratory: No Seizures: No Tetanus Vaccination: Unknown Influenza Vaccination: No Past Surgical History Genitourinary Surgery: Yes (LEFT NEPHRECTOMY) Psychiatric History Psychiatric History Hx Psychiatric Treatment: DISCHARGED 11/02/16 [place] [address] History of Inpatient Treatment: Yes Guns or firearms in home: No Social History Hx Alcohol Use: No Hx Tobacco Use: No Hx Substance Use: No Hx of Substance Use Treatment: No Allergies-Medications (Allergen,Severity, Reaction): Coded Allergies: Aspirin (Verified Allergy, Intermediate, Nausea/Vomiting, 11/02/16) Reported Meds & Prescriptions Reported Meds & Active Scripts Active Novolog Inj (Insulin Aspart) 100 Unit/Ml Inj 100 Unit SQ ACHS SLIDING SCALE Effexor XR 24 HR (Venlafaxine HCl) 75 Mg Cap 150 Mg PO DAILY Glucophage (Metformin HCl) 500 Mg Tab 500 Mg PO BIDPC Lisinopril 20 Mg Tab 20 Mg PO DAILY Catapres (Clonidine) 0.1 Mg Tab 0.1 Mg PO Q6H PRN Atorvastatin (Atorvastatin Calcium) 40 Mg Tab 40 Mg PO DAILY Elavil (Amitriptyline HCl) 25 Mg Tab 50 Mg PO HS Reported Effexor XR 24 HR (Venlafaxine HCl) 150 Mg Cap 150 Mg PO DAILY Review of Systems Except as stated in HPI: all other systems reviewed are Neg Exam Alert: Yes Chavies: Person, Place, Date, Situation Mood: Calm Affect: Appropriate Speech: Clear Eye Contact: Normal Memory Intact: Immediate, Recent, Remote Insight/Judgement Adequate MDM Medical Decision Making Medical Record Reviewed: Yes Assessment/Plan This physician reviewed the medical record, spoke to the patient's previous physician, Dr. Bautista and spoke to the current nurse. Patient wants to go home and try again. He is competent to make this decision, in my opinion. He is verbally rafat for safety and no longer has suicidal ideation. The weapon that he may have had has been removed from his home. He agrees to return to the hospital for further evaluation and treatment if he feels worse. He is felt to not meet Gilman act criteria at this time. Orders Psych Screen (11/03/16 00:42) Diet Regular Basic (11/03/16 Breakfast) Results Vital Signs Date Time Temp Pulse Resp B/P Pulse Ox O2 Delivery O2 Flow Rate FiO2 11/03/16 07:40 97.9 63 14 127/80 93 Room Air 11/03/16 03:00 68 18 112/74 95 Room Air 11/02/16 22:36 97.6 75 18 120/80 96 Diagnosis Primary Impression: Adjustment disorder with depressed mood Condition: Stable Arnold Aragon MD November 03, 2016 13:08
[2016-11-03 18:15] VITALS: BP 129/62; PULSE 69; RESP 18; TEMP 93; O2SAT 93
[2016-11-03] MEDS ORDERED: cloNIDine HCL 0.1 MG TAB PO PRN (19:15)
[2016-11-03] MEDS: AMITRIPTYLINE HCL 50 MG TAB PO SCH (20:04)
[2016-11-03 22:00] VITALS: BP 147/88; PULSE 71; RESP 19; TEMP 98.3; O2SAT 95
[2016-11-04 02:30] VITALS: BP 142/83; PULSE 81; RESP 19; TEMP 98.6; O2SAT 95
[2016-11-04 06:00] VITALS: BP 137/91; PULSE 64; RESP 19; O2SAT 93
[2016-11-04] MEDS: VENLAFAXINE HCL XR 75 MG CAP PO SCH (09:00)
[2016-11-04] MEDS: metFORMIN HCL 500 MG TAB PO SCH ×2 (09:00→18:00)
[2016-11-04] MEDS: ATORVASTATIN 40 MG TAB PO SCH (09:00)
[2016-11-04] MEDS: LISINOPRIL 20 MG TAB PO SCH (09:00)
[2016-11-04 10:49] VITALS: BP 120/65; PULSE 86; RESP 16; TEMP 98.6; O2SAT 98
[2016-11-04 17:00] VITALS: BP 127/85; PULSE 81; RESP 16; TEMP 98.6; O2SAT 95
[2016-11-04 18:00] VITALS: BP 127/85; PULSE 81; RESP 18; TEMP 97; O2SAT 95
[2016-11-04] MEDS ORDERED: ALUMINUM/MAGNESIUM/SIMETH 30 ML CUP PO PRN (18:45)
[2016-11-04] MEDS ORDERED: MAGNESIUM HYDROXIDE SUSP 30 ML CUP PO PRN (18:45)
[2016-11-04] MEDS ORDERED: ACETAMINOPHEN 325 MG TAB PO PRN (18:45)
[2016-11-04] MEDS ORDERED: LORazepam 2 MG/ML VIAL IM PRN (18:45)
[2016-11-04] MEDS: AMITRIPTYLINE HCL 50 MG TAB PO SCH (20:02)
[2016-11-04] MEDS: LORazepam 1 MG TAB PO PRN (20:02)
[2016-11-05 04:41] VITALS: BP 102/65; PULSE 65; RESP 16; TEMP 97.6; O2SAT 94
[2016-11-05] MEDS: LISINOPRIL 20 MG TAB PO SCH (08:38)
[2016-11-05] MEDS: VENLAFAXINE HCL XR 75 MG CAP PO SCH (08:38)
[2016-11-05] MEDS: ATORVASTATIN 40 MG TAB PO SCH (08:39)
[2016-11-05] MEDS: metFORMIN HCL 500 MG TAB PO SCH ×2 (08:39→17:41)
[2016-11-05 08:52] LABS: ANION GAP 10 MEQ/L (5-15); BICARBONATE 25.6 MEQ/L (21.0-32.0); BLOOD UREA NITROGEN 24 MG/DL (7-18); CHLORIDE 102 MEQ/L (98-107); GLOMERULAR FILTRATION RATE 54 ML/MIN (>89); SODIUM (NA) 138 MEQ/L (136-145)
[2016-11-05 08:54] LABS: HDL CHOLESTEROL 29.7 MG/DL (40.0-60.0); LDL CHOLESTEROL 62 MG/DL (0-99)
--- NOTE | 2016-11-05 12:41 | HHI.HP ---
Provisional Diagnosis Admission Date November 04, 2016 at 15:41 [place] I. Major depressive disorder Certification of Person's Competence To Provide Express and Informed Consent I have personally examined Eliu Ruiz , a person being served at [facility] on, November 05, 2016 12:35. Express and informed consent means consent voluntarily given in writing, by a competent person, after sufficient explanation and disclosure of the subject matter involved to enable the person to make a knowing and willful decision without any element of force, fraud, deceit, duress, or other form of constraint or coercion. This person is 18 years of age or older, is not now known to be incompetent to consent to treatment with a guardian advocate, and does not have a health care surrogate or proxy currently making medical treatment decisions. I have found this person to be one of the following: [X] Competent to provide express and informed consent, as defined above, for voluntary admission to this facility and is competent to provide express and informed consent for treatment. He/she has the consistent capacity to make well reasoned, willful, and knowing decisions concerning his or her medical or mental health treatment. The person fully and consistently understands the purpose of the admission for examination/placement and is fully capable of personally exercising all rights assured [place] Incompetent to provide express and informed consent to voluntary admission, and this is incompetent to provide express and informed consent to treatment. The person must be transferred to involuntary status and a petition for a guardian advocate filed with the Circuit Court. [] Refusing to provide express and informed consent to voluntary admission but is competent to provide express and informed consent for treatment. The person must be discharged or transferred to involuntary status. Form shall be completed within 24 hours of a person's arrival at the receiving facility and filed in the clinical record of each person: 1. Admitted on a voluntary basis 2. Permitted to provide express and informed consent to his/her own treatment 3. Allowed to transfer from involuntary to voluntary status 4. Prior to permitting a person to consent to his or her own treatment after having been previously found incompetent to consent to treatment. History of Present Illness Capacity: Has Capacity HPI As per Dr. Aragon documentation in the ER; 71-year-old male who was released from the hospital here at [place], psychiatry unit, less than one day ago. Patient was [place] acted for threatening to shoot himself. Patient admits he did this but also admits he does not have a gun at home. Apparently the gun is either with a neighbor or with law enforcement. Patient admits to multiple symptoms of depressed mood, anhedonia, suicidal ideation, diminished energy, social withdrawal, and anxiety. This physician spent approximately 1 hour with patient discussing various options, including readmitting patient, stabilizing him on medication and finding placement for him in an adult living facility. Patient was vehemently against that idea. We then called patient's brother to see if patient could move to [place]. Patient's brother states patient is financially irresponsible even though he has a income of $2000 per month. Patient's brother does not want patient to move to the [place] area and brother risks tired of caring for patient. This physician spoke to patient about returning home and always having the option of returning to ED if it does not work out at home. Patient chose this option and again remarks "I would never kill myself". Patient seen by me today, he reports sad mood, low energy, low appetite, difficulty sleeping last night, suicidal thoughts, but no intention or plan. Patient is able to contract for safety in the unit. Patient says that he does not feel safe to be in the street by himself. He says that once he was discharged recurrent and persistent suicidal thoughts came up to his mind and he was very afraid. At this moment he denies homicidal ideation, he denies visual and auditory hallucinations. She is oriented 3, no attention deficit, no gross cognitive impairment present. Review of Systems Constitutional: DENIES: Diaphoretic episodes, Fatigue, Fever, Weight gain, Weight loss, Chills, Dizziness, Change in appetite, Night Sweats Endocrine: DENIES: Heat/cold intolerance, Polydipsia, Polyuria, Polyphagia Eyes: DENIES: Blurred vision, Diplopia, Eye inflammation, Eye pain, Vision loss , Photosensitivity, Double Vision Ears, nose, mouth, throat: DENIES: Tinnitus, Hearing loss, Vertigo, Nasal discharge, Oral lesions, Throat pain, Hoarseness, Ear Pain, Running Nose, Epistaxis, Sinus Pain, Toothache, Odynophagia Respiratory: DENIES: Apneas, Cough, Snoring, Wheezing, Hemoptysis, Sputum production, Shortness of breath Cardiovascular: DENIES: Chest pain, Palpitations, Syncope, Dyspnea on Exertion , PND, Lower Extremity Edema, Orthopnea, Claudication Genitourinary: DENIES: Sexual dysfunction, Urinary frequency, Urinary incontinence, Urgency, Hematuria, Dysuria, Nocturia, Penile Discharge, Testicular Pain, Testicular Swelling Musculoskeletal: DENIES: Joint pain, Muscle aches, Stiffness, Joint Swelling, Back pain, Neck pain Integumentary: DENIES: Abnormal pigmentation, Nail changes, Pruritus, Rash Hematologic/lymphatic: DENIES: Bruising, Lymphadenopathy Neurologic: DENIES: Abnormal gait, Headache, Localized weakness, Paresthesias, Seizures, Speech Problems, Tremor, Poor Balance Psychiatric: DENIES: Anxiety, Confusion, Mood changes, Depression, Hallucinations, Agitation, Suicidal Ideation, Homicidal Ideation, Delusions Past Family Social History Coded Allergies: Aspirin (Verified Allergy, Intermediate, Nausea/Vomiting, 11/02/16) Active Scripts Insulin Aspart Inj (Novolog Inj)100 Unit/Ml [id number] Unit SQ ACHS SLIDING SCALE # 1 INJECTION Prov:Navi Walton MD 11/02/16 Venlafaxine ER 24 HR (Effexor XR 24 HR)75 Mg [id number] Mg PO DAILY #30 CAP Prov:Navi Walton MD 11/02/16 Metformin (Glucophage)500 Mg [id number] Mg PO BIDPC #30 TAB Prov:Navi Walton MD 11/02/16 Lisinopril 20 Mg Tab20 Mg PO DAILY #30 TAB Prov:Navi Walton MD 11/02/16 Clonidine (Catapres)0.1 Mg Tab0.1 Mg PO Q6H PRN (SBP>160, DBP>90) #30 TAB Prov:Navi Walton MD 11/02/16 Atorvastatin 40 Mg Tab40 Mg PO DAILY #30 TAB Prov:Navi Walton MD 11/02/16 Amitriptyline HCl (Elavil)25 Mg Tab50 Mg PO HS #30 TAB Prov:Navi Walton MD 11/02/16 Reported Medications Venlafaxine ER 24 HR (Effexor XR 24 HR)150 Mg [id number] Mg PO DAILY #30 CAP Ref 0 10/23/16 Discontinued Reported Medications Lisinopril 20 Mg Tab20 Mg PO DAILY #30 TAB Ref 0 10/23/16 Current Medications Medications (Trade) Dose Ordered Sig/Patty Route Start Time Stop Time Status Last Admin (Lipitor) 40 mg DAILY PO 11/04/16 09:00 11/05/16 08:39 (Catapres) 0.1 mg Q6H PRN PO 11/03/16 19:15 (Prinivil) 20 mg DAILY PO 11/04/16 09:00 11/05/16 08:38 (Glucophage) 500 mg BIDPC PO 11/04/16 09:00 11/05/16 08:39 (Effexor Xr) 150 mg DAILY PO 11/04/16 09:00 11/05/16 08:38 (Elavil) 50 mg HS PO 11/03/16 21:00 11/04/16 20:02 (Ativan) 1 mg Q6H PRN PO 11/04/16 18:45 11/04/16 20:02 (Ativan Inj) 1 mg Q6H PRN IM 11/04/16 18:45 (Tylenol) 650 mg Q4H PRN PO 11/04/16 18:45 (Milk Of Magnesia Liq) 30 ml DAILY PRN PO 11/04/16 18:45 (Mag-Al Plus Susp Liq) 30 ml Q6H PRN PO 11/04/16 18:45 Physical Exam Vital Signs Vital Signs Date Time Temp Pulse Resp B/P Pulse Ox O2 Delivery O2 Flow Rate FiO2 11/05/16 04:41 97.6 65 16 102/65 94 11/04/16 06:00 Room Air Mental Status Examination Appearance man, wheelchair-bound, [facility], he is calm and cooperative Speech: Unremarkable Orientation: x3 Memory: Unremarkable Thought Process: Logical Thought Content: Unremarkable Hallucination Type: None Attention and Concentration: Good Suicidal Ideation: No Previous Suicide Attempts: No Homicidal Ideation: No Previous Homicide Attempts: No Insight: Fair Judgment: Poor Affect: Sad Mood: Sad Motor Activity: Abnormal gait-specify Assessment & Plan Problem List: (1) Major depressive disorder, recurrent severe without psychotic features Assessment & Plan: Patient was recently discharged 2 days ago for inpatient psychiatry, 2600 unit by me, he came back out was immediately to the ER complaining of reemerging depression and suicidal ideation. He was seen and assessed by Dr. Aragon. We had a discussion regarding the benefits of readmitting the patient, continue psychotropics, psychotherapy, and working in a safest discharge planning. We will reorder current psychotropics. air brake worker intervention for counseling, group therapies, collateral information, and to work in a safe discharge.. ICD Code: F33.2 Assessment & Plan Estimated LOS: days Navi Walton MD November 05, 2016 12:41
[2016-11-05] MEDS: LORazepam 1 MG TAB PO PRN ×2 (13:39→21:37)
[2016-11-05 13:46] LABS: HEMOGLOBIN A1a 1.1 %; HEMOGLOBIN A1b 2.1 %; HEMOGLOBIN Ao 82.8 %; HEMOGLOBIN LA1C 2.1 %
[2016-11-05 16:40] VITALS: BP 140/73; PULSE 71; RESP 18; TEMP 98.1; O2SAT 94
[2016-11-05] MEDS: AMITRIPTYLINE HCL 50 MG TAB PO SCH (20:47)
[2016-11-06 05:50] VITALS: BP 113/75; PULSE 66; RESP 18; TEMP 97.4; O2SAT 96
[2016-11-06] MEDS: VENLAFAXINE HCL XR 75 MG CAP PO SCH (08:23)
[2016-11-06] MEDS: LISINOPRIL 20 MG TAB PO SCH (08:23)
[2016-11-06] MEDS: metFORMIN HCL 500 MG TAB PO SCH ×2 (08:23→17:33)
[2016-11-06] MEDS: ATORVASTATIN 40 MG TAB PO SCH (08:23)
--- NOTE | 2016-11-06 14:51 | HHI.PYPN ---
Subjective Remarks Patient was seen and case discussed with nursing. Patient is pleasant and cooperative with exam. He reports fleeting suicidal thoughts with no intent or plan. Mood is depressed. Compliant with his medications. He appears to be under TCA and an SSRI at the same time Objective Alert: Yes [place]: Person, Place, Date, Situation Mood: Calm Affect: Appropriate Memory Intact: Immediate, Recent, Remote Hallucinations: Other (none) Delusions: No Delusion Type: Other Suicidal: Ideation (fleeting) Homicidal: Ideation (denies) Insight/Judgment Poor Vitals/IOs Vital Signs Date Time Temp Pulse Resp B/P Pulse Ox O2 Delivery O2 Flow Rate FiO2 11/06/16 05:50 97.4 66 18 113/75 96 11/04/16 06:00 Room Air Assessment & Plan Problem List: (1) Major depressive disorder, recurrent severe without psychotic features ICD Code: F33.2 Assessment & Plan DC Elavil for sleep. Add trazodone Justification for Cont. Inpt. Patient will decompensate in a less restrictive setting Girma Mandel DO November 06, 2016 14:51
[2016-11-06] MEDS: LORazepam 1 MG TAB PO PRN (17:33)
[2016-11-06 20:21] VITALS: BP 116/74; PULSE 79; RESP 18; TEMP 97.2; O2SAT 96
[2016-11-06] MEDS: traZODone HCL 50 MG TAB PO SCH (20:50)
[2016-11-07 05:25] VITALS: BP 109/60; PULSE 67; RESP 16; TEMP 98; O2SAT 93
[2016-11-07] MEDS: metFORMIN HCL 500 MG TAB PO SCH ×2 (08:29→18:00)
[2016-11-07] MEDS: LISINOPRIL 20 MG TAB PO SCH (08:29)
[2016-11-07] MEDS: VENLAFAXINE HCL XR 75 MG CAP PO SCH (08:29)
[2016-11-07] MEDS: ATORVASTATIN 40 MG TAB PO SCH (08:29)
--- NOTE | 2016-11-07 12:40 | HHI.PYPN ---
Subjective Remarks Patient continues to make threats of suicide and refused to care for himself. He is unwilling to make decisions regarding his own self-care. This physician initiated civil commitment and guardianship paperwork. Review of Systems ROS Limitations: Poor Historian Objective Alert: Yes [place]: Person, Place, Date, Situation Mood: Calm Affect: Appropriate, Restricted Memory Intact: Immediate, Recent, Remote Hallucinations: Other (none) Delusions: No Delusion Type: Other Suicidal: Ideation (fleeting) Homicidal: Ideation (denies) Insight/Judgment Impaired Vitals/IOs Vital Signs Date Time Temp Pulse Resp B/P Pulse Ox O2 Delivery O2 Flow Rate FiO2 11/07/16 05:25 98.0 67 16 109/60 93 11/04/16 06:00 Room Air Assessment & Plan Problem List: (1) Major depressive disorder, recurrent severe without psychotic features ICD Code: F33.2 Assessment & Plan Estimated LOS: 5 days patient to be brought in front of park superintendent for disposition determination. Justification for Cont. Inpt. Continued suicidal threats. Arnold Aragon MD November 07, 2016 12:40
[2016-11-07] MEDS: LORazepam 1 MG TAB PO PRN ×2 (13:10→20:46)
[2016-11-07] MEDS: traZODone HCL 50 MG TAB PO SCH (20:46)
[2016-11-07 21:51] VITALS: BP 114/78; PULSE 74; RESP 16; TEMP 98; O2SAT 98
[2016-11-08 05:39] VITALS: BP 122/61; PULSE 64; RESP 18; TEMP 98.1; O2SAT 96
[2016-11-08] MEDS: VENLAFAXINE HCL XR 75 MG CAP PO SCH (09:04)
[2016-11-08] MEDS: LISINOPRIL 20 MG TAB PO SCH (09:04)
[2016-11-08] MEDS: metFORMIN HCL 500 MG TAB PO SCH ×2 (09:05→18:19)
[2016-11-08] MEDS: ATORVASTATIN 40 MG TAB PO SCH (09:05)
--- NOTE | 2016-11-08 10:16 | PD.CONS ---
Provisional Diagnosis Admission Date November 04, 2016 at 15:41 [place] I. Major depressive disorder History of Present Illness Service Psychiatry Consult Requested By Primary Care Physician No Primary Care Physician HPI As per Dr. Aragon documentation in the ER; 71-year-old male who was released from the hospital here at [place], psychiatry unit, less than one day ago. Patient was [place] acted for threatening to shoot himself. Patient admits he did this but also admits he does not have a gun at home. Apparently the gun is either with a neighbor or with law enforcement. Patient admits to multiple symptoms of depressed mood, anhedonia, suicidal ideation, diminished energy, social withdrawal, and anxiety. This physician spent approximately 1 hour with patient discussing various options, including readmitting patient, stabilizing him on medication and finding placement for him in an adult living facility. Patient was vehemently against that idea. We then called patient's brother to see if patient could move to [place]. Patient's brother states patient is financially irresponsible even though he has a income of $2000 per month. Patient's brother does not want patient to move to the [place] area and brother risks tired of caring for patient. This physician spoke to patient about returning home and always having the option of returning to ED if it does not work out at home. Patient chose this option and again remarks "I would never kill myself". Patient seen by me today, he reports sad mood, low energy, low appetite, difficulty sleeping last night, suicidal thoughts, but no intention or plan. Patient is able to contract for safety in the unit. Patient says that he does not feel safe to be in the street by himself. He says that once he was discharged recurrent and persistent suicidal thoughts came up to his mind and he was very afraid. At this moment he denies homicidal ideation, he denies visual and auditory hallucinations. She is oriented 3, no attention deficit, no gross cognitive impairment present. 11/08/16 Above note dictated initially by Dr. Bautista noted and agreed with also Dr. Aragon's notes from the ED reviewed and agreed with. Patient seen by me on 2600 with nurse Ludivina Freeman. Patient remains depressed tearful making some excuses for the suicide note though reviewing of his multiple visits through our hospital show his persistent depression. He is somewhat vague about suicidality at this time. Dr. Aragon #first opinion petition supporting Gilman act. I agree. Patient meets criteria for involuntary psychiatric hospitalization under the [place]man act area thus I'll cosign second opinion supporting Gilman act Past Family Social History Coded Allergies: Aspirin (Verified Allergy, Intermediate, Nausea/Vomiting, 11/02/16) Active Scripts Insulin Aspart Inj (Novolog Inj)100 Unit/Ml [id number] Unit SQ ACHS SLIDING SCALE # 1 INJECTION Prov:Navi Walton MD 11/02/16 Venlafaxine ER 24 HR (Effexor XR 24 HR)75 Mg [id number] Mg PO DAILY #30 CAP Prov:Navi Walton MD 11/02/16 Metformin (Glucophage)500 Mg [id number] Mg PO BIDPC #30 TAB Prov:Navi Walton MD 11/02/16 Lisinopril 20 Mg Tab20 Mg PO DAILY #30 TAB Prov:Navi Walton MD 11/02/16 Clonidine (Catapres)0.1 Mg Tab0.1 Mg PO Q6H PRN (SBP>160, DBP>90) #30 TAB Prov:Navi Walton MD 11/02/16 Atorvastatin 40 Mg Tab40 Mg PO DAILY #30 TAB Prov:Navi Walton MD 11/02/16 Amitriptyline HCl (Elavil)25 Mg Tab50 Mg PO HS #30 TAB Prov:Navi Walton MD 11/02/16 Reported Medications Venlafaxine ER 24 HR (Effexor XR 24 HR)150 Mg [id number] Mg PO DAILY #30 CAP Ref 0 10/23/16 Discontinued Reported Medications Lisinopril 20 Mg Tab20 Mg PO DAILY #30 TAB Ref 0 10/23/16 Current Medications Medications (Trade) Dose Ordered Sig/Patty Route Start Time Stop Time Status Last Admin (Lipitor) 40 mg DAILY PO 11/04/16 09:00 11/08/16 09:05 (Catapres) 0.1 mg Q6H PRN PO 11/03/16 19:15 (Prinivil) 20 mg DAILY PO 11/04/16 09:00 11/08/16 09:04 (Glucophage) 500 mg BIDPC PO 11/04/16 09:00 11/08/16 09:05 (Effexor Xr) 150 mg DAILY PO 11/04/16 09:00 11/08/16 09:04 (Ativan) 1 mg Q6H PRN PO 11/04/16 18:45 11/07/16 20:46 (Ativan Inj) 1 mg Q6H PRN IM 11/04/16 18:45 (Tylenol) 650 mg Q4H PRN PO 11/04/16 18:45 (Milk Of Magnesia Liq) 30 ml DAILY PRN PO 11/04/16 18:45 (Mag-Al Plus Susp Liq) 30 ml Q6H PRN PO 11/04/16 18:45 (Desyrel) 50 mg HS PO 11/06/16 21:00 11/07/16 20:46 Physical Exam Vital Signs Vital Signs Date Time Temp Pulse Resp B/P Pulse Ox O2 Delivery O2 Flow Rate FiO2 11/08/16 05:39 98.1 64 18 122/61 96 Mental Status Examination Alert oriented stockily built white male sitting in wheelchair, old chronic deformity right ankle noted he is cooperative fair eye contact tearful and depressed Appearance Fairly clean and neat Speech: Unremarkable Orientation: x3 Memory: Unremarkable Thought Process: Logical Thought Content: Unremarkable Hallucination Type: None Attention and Concentration: Good Suicidal Ideation: No Previous Suicide Attempts: No Homicidal Ideation: No Previous Homicide Attempts: No Insight: Fair Judgment: Poor Affect: Sad Mood: Sad Motor Activity: Abnormal gait-specify Assessment & Plan Problem List: (1) Major depressive disorder, recurrent severe without psychotic features ICD Code: F33.2 Assessment & Plan Estimated LOS: David Anderson MD November 08, 2016 10:16
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
[2016-11-08 18:00] VITALS: BP 108/61; PULSE 65; RESP 18; TEMP 98.3; O2SAT 96
[2016-11-08] MEDS: LORazepam 1 MG TAB PO PRN (20:30)
[2016-11-08] MEDS: traZODone HCL 50 MG TAB PO SCH (21:00)
[2016-11-09 05:06] VITALS: BP 109/57; PULSE 53; RESP 20; TEMP 97.9; O2SAT 97
[2016-11-09] MEDS: LISINOPRIL 20 MG TAB PO SCH (09:06)
[2016-11-09] MEDS: ATORVASTATIN 40 MG TAB PO SCH (09:07)
[2016-11-09] MEDS: VENLAFAXINE HCL XR 75 MG CAP PO SCH (09:07)
[2016-11-09] MEDS: metFORMIN HCL 500 MG TAB PO SCH ×2 (09:07→18:00)
--- NOTE | 2016-11-09 11:49 | HHI.PYPN ---
Subjective Remarks Patient seen in his room with nurse Thierry, chart review, did review patient's behaviors prior to leaving to this hospitalization. Is showing some insight into that. He is somewhat sad and not being to visit more with his brother. He now acknowledges need to find placement in [place]. He continues to denies suicidality at this time. Patient scheduled for [place] court tomorrow. At this time I feel patient does have capacity to sign voluntary. Will lift [place]man act allow her sign voluntary continue to work on medication and placement issues Review of Systems Except as stated in HPI: all other systems reviewed are Neg Objective Alert: Yes [place]: Person, Place, Date, Situation Mood: Calm Affect: Appropriate, Restricted Memory Intact: Immediate, Recent, Remote Hallucinations: Other (none) Delusions: No Delusion Type: Other Suicidal: Ideation (fleeting) Homicidal: Ideation (denies) Insight/Judgment Poor Vitals/IOs Vital Signs Date Time Temp Pulse Resp B/P Pulse Ox O2 Delivery O2 Flow Rate FiO2 11/09/16 05:06 97.9 53 20 109/57 97 Intake and Output 11/08/16 11/08/16 11/09/16 08:00 16:00 00:00 Intake Total 360 ml Balance 360 ml Assessment & Plan Problem List: (1) Major depressive disorder, recurrent severe without psychotic features ICD Code: F33.2 Assessment & Plan Estimated LOS: days patient continues depressed. Does compliant medications a somewhat calmer. Showing some insight into his need to find appropriate placement Justification for Cont. Inpt. At this time patient will decompensate the place to the lower level of care Discharge Planning To be determined David Ramos MD November 09, 2016 11:48
[2016-11-09 18:11] VITALS: BP 137/78; PULSE 78; RESP 16; TEMP 97.4; O2SAT 96
[2016-11-09] MEDS: traZODone HCL 50 MG TAB PO SCH (20:44)
[2016-11-09] MEDS: LORazepam 1 MG TAB PO PRN (21:30)
[2016-11-10] MEDS: VENLAFAXINE HCL XR 75 MG CAP PO SCH (08:18)
[2016-11-10] MEDS: metFORMIN HCL 500 MG TAB PO SCH ×2 (08:18→17:24)
[2016-11-10] MEDS: LISINOPRIL 20 MG TAB PO SCH (08:18)
[2016-11-10] MEDS: ATORVASTATIN 40 MG TAB PO SCH (08:19)
--- NOTE | 2016-11-10 14:34 | HHI.PYPN ---
Subjective Remarks Patient seen in [place] with nurse Len, patient showing some improved affect today is more intense, he has good: Color in His face states feeling better now , that he was processing things better also. For now continue treatment Review of Systems Except as stated in HPI: all other systems reviewed are Neg Objective Alert: Yes [place]: Person, Place, Date, Situation Mood: Calm Affect: Appropriate, Restricted Memory Intact: Immediate, Recent, Remote Hallucinations: Other (none) Delusions: No Delusion Type: Other Suicidal: Ideation (fleeting) Homicidal: Ideation (denies) Insight/Judgment Poor Vitals/IOs Vital Signs Date Time Temp Pulse Resp B/P Pulse Ox O2 Delivery O2 Flow Rate FiO2 11/09/16 18:11 97.4 78 16 137/78 96 Assessment & Plan Problem List: (1) Major depressive disorder, recurrent severe without psychotic features ICD Code: F33.2 Assessment & Plan Estimated LOS: days patient depression seems to be lifting somewhat, or focus, compliant medications. For now continue treatment Justification for Cont. Inpt. At this time patient decompensate and placed in a lower level of care Discharge Planning To be determined David Ramos MD November 10, 2016 14:34
[2016-11-10 18:00] VITALS: BP 126/70; PULSE 62; RESP 18; TEMP 98.7; O2SAT 95
[2016-11-10] MEDS: traZODone HCL 50 MG TAB PO SCH (21:17)
[2016-11-10] MEDS: LORazepam 1 MG TAB PO PRN (21:17)
[2016-11-11 06:23] VITALS: BP 110/59; PULSE 63; RESP 18; TEMP 98.2; O2SAT 96
[2016-11-11] MEDS: VENLAFAXINE HCL XR 75 MG CAP PO SCH (08:40)
[2016-11-11] MEDS: ATORVASTATIN 40 MG TAB PO SCH (08:40)
[2016-11-11] MEDS: LISINOPRIL 20 MG TAB PO SCH (08:40)
[2016-11-11] MEDS: metFORMIN HCL 500 MG TAB PO SCH ×2 (08:40→17:04)
--- NOTE | 2016-11-11 11:01 | HHI.PYPN ---
Subjective Remarks Patient seen in his room with RN. Chart reviewed. Patient compliant medication. Patient just show some improvement in his affect denying suicidality homicidality. Continues to be willing to find [facility] placement. He does realize the difficulty with him attempting to live independently at this time Review of Systems Except as stated in HPI: all other systems reviewed are Neg Objective Alert: Yes [place]: Person, Place, Date, Situation Mood: Calm Affect: Appropriate, Restricted Memory Intact: Immediate, Recent, Remote Hallucinations: Other (none) Delusions: No Delusion Type: Other Suicidal: Ideation (fleeting) Homicidal: Ideation (denies) Insight/Judgment Poor Vitals/IOs Vital Signs Date Time Temp Pulse Resp B/P Pulse Ox O2 Delivery O2 Flow Rate FiO2 11/11/16 06:23 98.2 63 18 110/59 96 Intake and Output 11/10/16 11/10/16 11/11/16 08:00 16:00 00:00 Intake Total 360 ml Balance 360 ml Assessment & Plan Problem List: (1) Major depressive disorder, recurrent severe without psychotic features ICD Code: F33.2 Assessment & Plan Estimated LOS: days patient continue somewhat depressed but improving. Showing some increase in central processing of his issues. Compliant medication Justification for Cont. Inpt. At this time patient will decompensate and placed in a lower level of care Discharge Planning To be determined David Ramos MD November 11, 2016 11:01
[2016-11-11 17:22] VITALS: BP 119/68; PULSE 57; RESP 17; TEMP 98.3; O2SAT 96
[2016-11-11] MEDS: traZODone HCL 50 MG TAB PO SCH (20:59)
[2016-11-11] MEDS: LORazepam 1 MG TAB PO PRN (20:59)
[2016-11-12 05:55] VITALS: BP 110/56; PULSE 61; RESP 16; TEMP 97.6; O2SAT 96
[2016-11-12 06:00] VITALS: BP 144/77; PULSE 58; RESP 17; TEMP 97.7; O2SAT 98
[2016-11-12] MEDS: metFORMIN HCL 500 MG TAB PO SCH ×2 (08:56→17:10)
[2016-11-12] MEDS: ATORVASTATIN 40 MG TAB PO SCH (08:56)
[2016-11-12] MEDS: LISINOPRIL 20 MG TAB PO SCH (08:56)
[2016-11-12] MEDS: VENLAFAXINE HCL XR 75 MG CAP PO SCH (08:56)
--- NOTE | 2016-11-12 17:50 | HHI.PYPN ---
Subjective Remarks Pt seen and discussed with staff. He reports that he mood is improving and he is tolerating medications without side effects. He attended and participated in psychotherapy group. No SI/HI Objective Alert: Yes [place]: Person, Place, Date, Situation Mood: Calm Affect: Appropriate, Restricted Memory Intact: Immediate, Recent, Remote Hallucinations: Other (none) Delusions: No Delusion Type: Other Suicidal: Ideation (fleeting) Homicidal: Ideation (denies) Insight/Judgment fair Vitals/IOs Vital Signs Date Time Temp Pulse Resp B/P Pulse Ox O2 Delivery O2 Flow Rate FiO2 11/12/16 05:55 97.6 61 16 110/56 96 Assessment & Plan Problem List: (1) Major depressive disorder, recurrent severe without psychotic features ICD Code: F33.2 Assessment & Plan Continue current tx plan Estimated LOS: days Justification for Cont. Inpt. risk of decompensation Marly Whipple MD November 12, 2016 17:50
[2016-11-12 18:00] VITALS: BP 144/77; PULSE 58; RESP 17; TEMP 97.7; O2SAT 98
[2016-11-12] MEDS: traZODone HCL 50 MG TAB PO SCH (21:00)
[2016-11-12] MEDS: LORazepam 1 MG TAB PO PRN (21:36)
[2016-11-13 05:09] VITALS: BP 114/59; PULSE 56; RESP 16; TEMP 98.1; O2SAT 94
[2016-11-13 05:42] VITALS: BP 114/59; PULSE 56; RESP 16; TEMP 98.1; O2SAT 94
[2016-11-13] MEDS: metFORMIN HCL 500 MG TAB PO SCH ×2 (09:13→17:15)
[2016-11-13] MEDS: ATORVASTATIN 40 MG TAB PO SCH (09:14)
[2016-11-13] MEDS: LISINOPRIL 20 MG TAB PO SCH (09:14)
[2016-11-13] MEDS: VENLAFAXINE HCL XR 75 MG CAP PO SCH (09:14)
--- NOTE | 2016-11-13 16:50 | HHI.PYPN ---
Subjective Remarks Pt seen and discussed with staff. He has been compliant with medications and treatment. He reports that mood is improved and he denies SI/HI. He has been participating in milieu activities. Objective Alert: Yes [place]: Person, Place, Date, Situation Mood: Calm Affect: Appropriate Memory Intact: Immediate, Recent, Remote Hallucinations: Other (none) Delusions: No Delusion Type: Other (none) Suicidal: Ideation (fleeting) Homicidal: Ideation (denies) Insight/Judgment poor Vitals/IOs Vital Signs Date Time Temp Pulse Resp B/P Pulse Ox O2 Delivery O2 Flow Rate FiO2 11/13/16 05:42 98.1 56 16 114/59 94 Intake and Output 11/12/16 11/12/16 11/13/16 08:00 16:00 00:00 Intake Total 480 ml 360 ml Balance 480 ml 360 ml Assessment & Plan Problem List: (1) Major depressive disorder, recurrent severe without psychotic features ICD Code: F33.2 Assessment & Plan Continue current tx plan Estimated LOS: days Justification for Cont. Inpt. risk of decompensation Marly Whipple MD November 13, 2016 16:50
[2016-11-13] MEDS: LORazepam 1 MG TAB PO PRN (20:39)
[2016-11-13] MEDS: traZODone HCL 50 MG TAB PO SCH (20:39)
[2016-11-14 05:09] VITALS: BP 113/65; PULSE 58; RESP 18; TEMP 97.3; O2SAT 96
[2016-11-14] MEDS: VENLAFAXINE HCL XR 75 MG CAP PO SCH (09:03)
[2016-11-14] MEDS: ATORVASTATIN 40 MG TAB PO SCH (09:03)
[2016-11-14] MEDS: metFORMIN HCL 500 MG TAB PO SCH ×2 (09:03→17:43)
[2016-11-14] MEDS: LISINOPRIL 20 MG TAB PO SCH (09:03)
--- NOTE | 2016-11-14 13:00 | HHI.PYPN ---
Subjective Remarks Patient seen in dayroom with nurse Sera. Patient calm cooperative and pleasant, compliant medications, continues to agree with placement issues and work with us to find appropriate placement Review of Systems Except as stated in HPI: all other systems reviewed are Neg Objective Alert: Yes [place]: Person, Place, Date, Situation Mood: Calm Affect: Appropriate Memory Intact: Immediate, Recent, Remote Hallucinations: Other (none) Delusions: No Delusion Type: Other (none) Suicidal: Ideation (fleeting) Homicidal: Ideation (denies) Insight/Judgment Poor Vitals/IOs Vital Signs Date Time Temp Pulse Resp B/P Pulse Ox O2 Delivery O2 Flow Rate FiO2 11/14/16 05:09 97.3 58 18 113/65 96 Assessment & Plan Problem List: (1) Major depressive disorder, recurrent severe without psychotic features ICD Code: F33.2 Assessment & Plan Estimated LOS: days patient depression is slowly lifting, showing some good processing of need for appropriate placement Justification for Cont. Inpt. At this time patient would decompensate the place to the lower level of care Discharge Planning To be determined David Ramos MD November 14, 2016 13:00
[2016-11-14 17:08] VITALS: BP 118/62; PULSE 76; RESP 18; TEMP 97.9; O2SAT 96
[2016-11-14] MEDS: traZODone HCL 50 MG TAB PO SCH (21:13)
[2016-11-14] MEDS: LORazepam 1 MG TAB PO PRN (21:44)
[2016-11-15 06:00] VITALS: BP 105/63; PULSE 67; RESP 17; TEMP 98.6; O2SAT 95
[2016-11-15] MEDS: ATORVASTATIN 40 MG TAB PO SCH (08:26)
[2016-11-15] MEDS: LISINOPRIL 20 MG TAB PO SCH (08:26)
[2016-11-15] MEDS: VENLAFAXINE HCL XR 75 MG CAP PO SCH (08:27)
[2016-11-15] MEDS: metFORMIN HCL 500 MG TAB PO SCH ×2 (08:27→18:00)
--- NOTE | 2016-11-15 14:13 | HHI.PYPN ---
Subjective Remarks Patient seen in his room with floor staff. Patient somewhat sad today appears she feels somewhat frustrated about his future, there appears to be a hopelessness with them today and a feeling of loneliness. Though he denies depression getting any worse. Denies suicidality. Has been compliant with his medications. For now continue treatment Review of Systems Except as stated in HPI: all other systems reviewed are Neg Objective Alert: Yes [place]: Person, Place, Date, Situation Mood: Calm Affect: Appropriate Memory Intact: Immediate, Recent, Remote Hallucinations: Other (none) Delusions: No Delusion Type: Other (none) Suicidal: Ideation (fleeting) Homicidal: Ideation (denies) Insight/Judgment Poor Vitals/IOs Vital Signs Date Time Temp Pulse Resp B/P Pulse Ox O2 Delivery O2 Flow Rate FiO2 11/14/16 17:08 97.9 76 18 118/62 96 Assessment & Plan Problem List: (1) Major depressive disorder, recurrent severe without psychotic features ICD Code: F33.2 Assessment & Plan Estimated LOS: days patient today somewhat more depressed feelings that think of loneliness helplessness with nobody to care for him. For now continue treatment Justification for Cont. Inpt. At this summer feel patient will decompensate the placed in a lower level of care Discharge Planning To be determined David Ramos MD November 15, 2016 14:13
[2016-11-15 16:47] VITALS: BP 149/76; PULSE 60; RESP 18; TEMP 97.4; O2SAT 96
[2016-11-15] MEDS: LORazepam 1 MG TAB PO PRN (21:34)
[2016-11-15] MEDS: traZODone HCL 50 MG TAB PO SCH (21:34)
[2016-11-16 05:46] VITALS: BP 124/73; PULSE 59; RESP 18; TEMP 98.4; O2SAT 96
[2016-11-16] MEDS: LISINOPRIL 20 MG TAB PO SCH (08:10)
[2016-11-16] MEDS: VENLAFAXINE HCL XR 75 MG CAP PO SCH (08:10)
[2016-11-16] MEDS: metFORMIN HCL 500 MG TAB PO SCH ×2 (08:10→17:32)
[2016-11-16] MEDS: ATORVASTATIN 40 MG TAB PO SCH (08:10)
--- NOTE | 2016-11-16 15:18 | HHI.PYPN ---
Subjective Remarks Patient seen in dayroom, with floor staff, chart reviewed. Patient's affect is improved he is brighter today still doing some self guilt about his behavior leading to this hospitalization. However his overall calm cooperative working with placement issues Review of Systems Except as stated in HPI: all other systems reviewed are Neg Objective Alert: Yes [place]: Person, Place, Date, Situation Mood: Calm Affect: Appropriate Memory Intact: Immediate, Recent, Remote Hallucinations: Other (none) Delusions: No Delusion Type: Other (none) Suicidal: Ideation (fleeting) Homicidal: Ideation (denies) Insight/Judgment Poor Vitals/IOs Vital Signs Date Time Temp Pulse Resp B/P Pulse Ox O2 Delivery O2 Flow Rate FiO2 11/16/16 05:46 98.4 59 18 124/73 96 Assessment & Plan Problem List: (1) Major depressive disorder, recurrent severe without psychotic features ICD Code: F33.2 Assessment & Plan Estimated LOS: days patient continues depressed but overall slightly improved. Continues cooperative work with placement issues Justification for Cont. Inpt. At this time patient would decompensate the placed a lower level of care Discharge Planning To be determined David Ramos MD November 16, 2016 15:18
[2016-11-16 16:00] VITALS: BP 135/72; PULSE 60; RESP 18; TEMP 97.8; O2SAT 97
[2016-11-16] MEDS: traZODone HCL 50 MG TAB PO SCH (20:44)
[2016-11-17 05:24] VITALS: BP 124/57; PULSE 64; RESP 16; TEMP 98.6; O2SAT 94
[2016-11-17] MEDS: LISINOPRIL 20 MG TAB PO SCH (09:35)
[2016-11-17] MEDS: metFORMIN HCL 500 MG TAB PO SCH ×2 (09:35→17:30)
[2016-11-17] MEDS: VENLAFAXINE HCL XR 75 MG CAP PO SCH (09:35)
[2016-11-17] MEDS: ATORVASTATIN 40 MG TAB PO SCH (09:36)
--- NOTE | 2016-11-17 14:30 | HHI.PYPN ---
Subjective Remarks Patient seen in his room. Patient continues to show depression related to his perceived failures, is state of life at the present time, and his future. He is also frustrated with this financial status. However he does have the ability to show some positive thoughts about helping himself. For now continue treatment Review of Systems Except as stated in HPI: all other systems reviewed are Neg Objective Alert: Yes [place]: Person, Place, Date, Situation Mood: Calm Affect: Appropriate Memory Intact: Immediate, Recent, Remote Hallucinations: Other (none) Delusions: No Delusion Type: Other (none) Suicidal: Ideation (fleeting) Homicidal: Ideation (denies) Insight/Judgment Very poor Vitals/IOs Vital Signs Date Time Temp Pulse Resp B/P Pulse Ox O2 Delivery O2 Flow Rate FiO2 11/17/16 05:24 98.6 64 16 124/57 94 Assessment & Plan Problem List: (1) Major depressive disorder, recurrent severe without psychotic features ICD Code: F33.2 Assessment & Plan Estimated LOS: days patient remains depressed somewhat hopeless and helpless frustrated with his situation. For now continue treatment Justification for Cont. Inpt. At this time patient will decompensate the placed in a lower level of care Discharge Planning To be determined David Ramos MD Nov 17, 2016 14:30
[2016-11-17 16:00] VITALS: BP 120/73; PULSE 64; RESP 17; TEMP 97.6; O2SAT 96
[2016-11-17] MEDS: traZODone HCL 50 MG TAB PO SCH (20:30)
[2016-11-17] MEDS: LORazepam 1 MG TAB PO PRN (20:33)
[2016-11-18 06:27] VITALS: BP 125/58; PULSE 59; RESP 16; TEMP 98.2
[2016-11-18] MEDS: metFORMIN HCL 500 MG TAB PO SCH ×2 (08:36→18:29)
[2016-11-18] MEDS: VENLAFAXINE HCL XR 75 MG CAP PO SCH (08:36)
[2016-11-18] MEDS: LISINOPRIL 20 MG TAB PO SCH (08:36)
[2016-11-18] MEDS: ATORVASTATIN 40 MG TAB PO SCH (08:36)
--- NOTE | 2016-11-18 10:31 | HHI.PYPN ---
Subjective Remarks Patient seen in his room with nurse Liliana, chart reviewed, patient compliant medications. Patient's mood is somewhat improved today, it appears she is talking more with family who lives out of state including a brother and sister. He also has been talk of variceal less of interviewed him. He does denies suicidality at this time. Denies voices or visions. For now continue treatment Review of Systems Except as stated in HPI: all other systems reviewed are Neg Objective Alert: Yes [place]: Person, Place, Date, Situation Mood: Calm Affect: Appropriate Memory Intact: Immediate, Recent, Remote Hallucinations: Other (none) Delusions: No Delusion Type: Other (none) Suicidal: Ideation (fleeting) Homicidal: Ideation (denies) Insight/Judgment Poor Vitals/IOs Vital Signs Date Time Temp Pulse Resp B/P Pulse Ox O2 Delivery O2 Flow Rate FiO2 11/18/16 06:27 98.2 59 16 125/58 11/17/16 16:00 96 Assessment & Plan Problem List: (1) Major depressive disorder, recurrent severe without psychotic features ICD Code: F33.2 Assessment & Plan Estimated LOS: days patient continues depressed but softened somewhat today. He is some encouragement increase communication with this family of origin Justification for Cont. Inpt. At this time patient will decompensate and placed in the lower level of care Discharge Planning To be determined David Ramos MD Nov 18, 2016 10:30
[2016-11-18 17:15] VITALS: BP 126/71; PULSE 67; RESP 18; TEMP 97.4; O2SAT 97
[2016-11-18] MEDS: LORazepam 1 MG TAB PO PRN (20:57)
[2016-11-18] MEDS: traZODone HCL 50 MG TAB PO SCH (20:58)
[2016-11-19 06:18] VITALS: BP 94/53; PULSE 63; RESP 16; TEMP 97.8; O2SAT 98
[2016-11-19] MEDS: LISINOPRIL 20 MG TAB PO SCH (09:02)
[2016-11-19] MEDS: VENLAFAXINE HCL XR 75 MG CAP PO SCH (09:02)
[2016-11-19] MEDS: ATORVASTATIN 40 MG TAB PO SCH (09:03)
[2016-11-19] MEDS: metFORMIN HCL 500 MG TAB PO SCH ×2 (09:03→17:50)
--- NOTE | 2016-11-19 15:51 | HHI.PYPN ---
Subjective Remarks Pt seen and discussed with staff. He reports that he is doing well on current medication regimen and is tolerating them without side effects. He reports that mood is improved and depression has lessened. STaff reports that he has been spending time in dayroom and participating in unit activities. No SI/HI Objective Alert: Yes [place]: Person, Place, Date, Situation Mood: Calm Affect: Appropriate Memory Intact: Immediate, Recent, Remote Hallucinations: Other (none) Delusions: No Delusion Type: Other (none) Suicidal: Ideation (fleeting) Homicidal: Ideation (denies) Insight/Judgment fair Vitals/IOs Vital Signs Date Time Temp Pulse Resp B/P Pulse Ox O2 Delivery O2 Flow Rate FiO2 11/19/16 06:18 97.8 63 16 94/53 98 Assessment & Plan Problem List: (1) Major depressive disorder, recurrent severe without psychotic features ICD Code: F33.2 Assessment & Plan Cotninue current tx plan. Estimated LOS: days Justification for Cont. Inpt. decompensation at lower level of care Marly Whipple MD Nov 19, 2016 3:51 pm
[2016-11-19 18:30] VITALS: BP 120/71; PULSE 61; RESP 17; TEMP 98.1; O2SAT 98
[2016-11-19] MEDS: LORazepam 1 MG TAB PO PRN (21:49)
[2016-11-19] MEDS: traZODone HCL 50 MG TAB PO SCH (21:49)
[2016-11-20 06:26] VITALS: BP 140/60; PULSE 78; RESP 16; TEMP 98.7; O2SAT 96
[2016-11-20] MEDS: LISINOPRIL 20 MG TAB PO SCH (08:26)
[2016-11-20] MEDS: ATORVASTATIN 40 MG TAB PO SCH (08:26)
[2016-11-20] MEDS: metFORMIN HCL 500 MG TAB PO SCH ×2 (08:26→17:19)
[2016-11-20] MEDS: VENLAFAXINE HCL XR 75 MG CAP PO SCH (08:27)
--- NOTE | 2016-11-20 17:56 | HHI.PYPN ---
Subjective Remarks Pt seen and discussed with staff. He has been cooperative with care. No behavioral problems. Mood improved. No SI/HI Objective Alert: Yes [place]: Person, Place, Date, Situation Mood: Calm Affect: Appropriate Memory Intact: Immediate, Recent, Remote Hallucinations: Other (none) Delusions: No Delusion Type: Other (none) Suicidal: Ideation (fleeting) Homicidal: Ideation (denies) Insight/Judgment fair Vitals/IOs Vital Signs Date Time Temp Pulse Resp B/P Pulse Ox O2 Delivery O2 Flow Rate FiO2 11/20/16 06:26 98.7 78 16 140/60 96 Assessment & Plan Problem List: (1) Major depressive disorder, recurrent severe without psychotic features ICD Code: F33.2 Assessment & Plan continue current tx plan. Estimated LOS: days Justification for Cont. Inpt. risk of decompensation Marly Whipple MD Nov 20, 2016 17:56
[2016-11-20 18:21] VITALS: BP 101/58; PULSE 75; RESP 16; TEMP 98.2; O2SAT 99
[2016-11-20] MEDS: traZODone HCL 50 MG TAB PO SCH (20:39)
[2016-11-20] MEDS: LORazepam 1 MG TAB PO PRN (20:39)
[2016-11-21 06:25] VITALS: BP 135/68; PULSE 68; RESP 17; TEMP 98.4; O2SAT 98
[2016-11-21] MEDS: ATORVASTATIN 40 MG TAB PO SCH (09:00)
[2016-11-21] MEDS: LISINOPRIL 20 MG TAB PO SCH (09:00)
[2016-11-21] MEDS: VENLAFAXINE HCL XR 75 MG CAP PO SCH (09:00)
[2016-11-21] MEDS: metFORMIN HCL 500 MG TAB PO SCH ×2 (09:01→18:00)
--- NOTE | 2016-11-21 13:33 | HHI.PYPN ---
Subjective Remarks Patient seen in day room with nurse Supa, patient continues pleasant though still somewhat depressed. However he is excited about conversations he is having with his brother. It appears brother may be planning to travel down here pickup his brother, and finish his affairs down here and then relocate them to his home town in [place]. Patient compliant medications. Denies suicidality for now continue treatment Review of Systems Except as stated in HPI: all other systems reviewed are Neg Objective Alert: Yes [place]: Person, Place, Date, Situation Mood: Calm Affect: Appropriate Memory Intact: Immediate, Recent, Remote Hallucinations: Other (none) Delusions: No Delusion Type: Other (none) Suicidal: Ideation (fleeting) Homicidal: Ideation (denies) Insight/Judgment Poor Vitals/IOs Vital Signs Date Time Temp Pulse Resp B/P Pulse Ox O2 Delivery O2 Flow Rate FiO2 11/21/16 06:25 98.4 68 17 135/68 98 Intake and Output 11/20/16 11/20/16 11/21/16 08:00 16:00 00:00 Intake Total 800 ml Balance 800 ml Assessment & Plan Problem List: (1) Major depressive disorder, recurrent severe without psychotic features ICD Code: F33.2 Assessment & Plan Estimated LOS: days patient continues depressed though mood is somewhat better , is excited about possibility of relocating with his brother Justification for Cont. Inpt. At this time patient will decompensate if placed in the lower level of care Discharge Planning To be determined David Ramos MD Nov 21, 2016 13:33
--- NOTE | 2016-11-21 13:43 | PD.TTN ---
Present for Treatment Team Treatment Team Staff: Provider, Nurse, Psych Therapist, Occupational Therapist Patient Problems 1. Discharge planning 2. Medication compliance 3. Knowledge deficit 4. Lack of coping skills Progress Toward Goals Provider Input: Dr. Solorio has his treatment team meeting to discuss medication, treatment plan, and discharge. Patient will either be discharged to cinthiaet's brother or to a facility. Patient is medication compliant and will continue treatment as planned. Nurse Input: Patient's nurse Supa reports patient continues to report being depressed. Patient is medication compliant. Patient is eating and sleeping well. Patient has been no behavioral problems on unit. Psych Therapist Input: Patient was pleasant, cooperative affect blunted. Patient's speech was clear, and organized. Patient reports he is eating and sleeping well. Patient has been no behavioral problems on unit. Patient is denying suicidal and homicidal ideation. Patient does not present internally stimulated or with any delusional content. Occupational Therapist Input: Group Associate Pastor Jeannie Anderson reports patient attends the group activities, however elba tends to isolate to self. Flor King [facility] Nov 21, 2016 13:43
[2016-11-21 16:00] VITALS: BP 135/62; PULSE 76; RESP 16; TEMP 98.3; O2SAT 97
[2016-11-21] MEDS: LORazepam 1 MG TAB PO PRN (20:31)
[2016-11-21] MEDS: traZODone HCL 50 MG TAB PO SCH (20:31)
[2016-11-22 05:31] VITALS: BP 118/63; PULSE 72; RESP 16; TEMP 97.8; O2SAT 93
[2016-11-22] MEDS: metFORMIN HCL 500 MG TAB PO SCH ×2 (08:50→17:54)
[2016-11-22] MEDS: VENLAFAXINE HCL XR 75 MG CAP PO SCH (08:50)
[2016-11-22] MEDS: LISINOPRIL 20 MG TAB PO SCH (08:50)
[2016-11-22] MEDS: ATORVASTATIN 40 MG TAB PO SCH (08:50)
--- NOTE | 2016-11-22 11:37 | HHI.PYPN ---
Subjective Remarks Patient seen in his room with floor staff, chart reviewed, patient compliant medications. Patient calm cooperative sit in a conversation with his brother last night. It appears now there focusing more on patient moving into an [facility] initially discussing further living arrangements later on. Patient is accepting of that. For now continue treatment no change. Patient denies suicidality homicidality voices or visions Review of Systems Except as stated in HPI: all other systems reviewed are Neg Objective Alert: Yes [place]: Person, Place, Date, Situation Mood: Calm Affect: Appropriate Memory Intact: Immediate, Recent, Remote Hallucinations: Other (none) Delusions: No Delusion Type: Other (none) Suicidal: Ideation (fleeting) Homicidal: Ideation (denies) Insight/Judgment Poor to fair Vitals/IOs Vital Signs Date Time Temp Pulse Resp B/P Pulse Ox O2 Delivery O2 Flow Rate FiO2 11/22/16 05:31 97.8 72 16 118/63 93 Assessment & Plan Problem List: (1) Major depressive disorder, recurrent severe without psychotic features ICD Code: F33.2 Assessment & Plan Estimated LOS: days patient depression is lifting, showing some excitement and some commitment to their plan Justification for Cont. Inpt. At this time patient decompensate the placed a lower level of care Discharge Planning To be determined David Ramos MD Nov 22, 2016 11:37
[2016-11-22 16:22] VITALS: BP 122/81; PULSE 62; RESP 16; TEMP 97.6; O2SAT 98
[2016-11-22] MEDS: traZODone HCL 50 MG TAB PO SCH (20:06)
[2016-11-22] MEDS: LORazepam 1 MG TAB PO PRN (20:35)
[2016-11-23 05:34] VITALS: BP 148/71; PULSE 62; RESP 17; TEMP 98.3; O2SAT 97
[2016-11-23] MEDS: VENLAFAXINE HCL XR 75 MG CAP PO SCH (08:46)
[2016-11-23] MEDS: ATORVASTATIN 40 MG TAB PO SCH (08:46)
[2016-11-23] MEDS: LISINOPRIL 20 MG TAB PO SCH (08:47)
[2016-11-23] MEDS: metFORMIN HCL 500 MG TAB PO SCH ×2 (08:47→18:00)
--- NOTE | 2016-11-23 12:18 | PD.TTN ---
Present for Treatment Team Treatment Team Staff: Provider, Nurse, Psych Therapist, Clinical Specialist Patient Problems 1. Discharge planning 2. Medication compliance 3. Knowledge deficit 4. Lack of coping skills Progress Toward Goals Provider Input: Dr. Ramos's treatment team met to discuss medication, treatment plan, and discharge plan. Patient will be discharged when placement has been obtained. Nurse Input: Patient's Nurse Michael RN reports patient is intermittantly tearful, when discussing loss of dog and his , but feels patient is ready for discharge when placement has been found. Psych Therapist Input: Patient presents pleasant cooperative but guarded, tearful, affect labile. Patient denies suicidal and homicidal ideation. Patient does not present internally stimulated or with any delusional content. Placement is being looked at at [facility]. Due to patient needing his certificate, social security card, along with 3 months of bank statements placement is an issue Patient's family member and friend have been contacted to help this process along. Clinical Specialist Input: Carola BAE reports patient attends groups with encouragement. Patient is very tearful at times. Flor KingPerla Nov 23, 2016 12:18
--- NOTE | 2016-11-23 14:11 | HHI.PYPN ---
Subjective Remarks Patient seen in day room with forceps, continues calm pleasant today, acknowledging being somewhat depressed irritable yesterday because it was the anniversary of his 's . Otherwise she is doing well is happy with the communications with his brother and the efforts made to find appropriate placement. Patient compliant medication does denies suicidality Review of Systems Except as stated in HPI: all other systems reviewed are Neg Objective Alert: Yes [place]: Person, Place, Date, Situation Mood: Calm Affect: Appropriate Memory Intact: Immediate, Recent, Remote Hallucinations: Other (none) Delusions: No Delusion Type: Other (none) Suicidal: Ideation (fleeting) Homicidal: Ideation (denies) Insight/Judgment Poor Vitals/IOs Vital Signs Date Time Temp Pulse Resp B/P Pulse Ox O2 Delivery O2 Flow Rate FiO2 11/23/16 05:34 98.3 62 17 148/71 97 Intake and Output 11/22/16 11/22/16 11/23/16 08:00 16:00 00:00 Intake Total 840 ml Balance 840 ml Assessment & Plan Problem List: (1) Major depressive disorder, recurrent severe without psychotic features ICD Code: F33.2 Assessment & Plan Estimated LOS: days patient's depression is lifting, continues to work well with us related to placement issues and is grieving over the anniversary of his 's Justification for Cont. Inpt. At this time patient will decompensate the placed in a lower level of care Discharge Planning To be determined David Ramos MD Nov 23, 2016 14:11
[2016-11-23] MEDS: traZODone HCL 50 MG TAB PO SCH (21:24)
[2016-11-23] MEDS: LORazepam 1 MG TAB PO PRN (21:24)
[2016-11-23 22:01] VITALS: BP 144/78; PULSE 64; RESP 17; TEMP 98.3; O2SAT 96
[2016-11-24 06:19] VITALS: BP 115/62; PULSE 64; RESP 16; TEMP 97.8; O2SAT 93
[2016-11-24] MEDS: ATORVASTATIN 40 MG TAB PO SCH (08:40)
[2016-11-24] MEDS: VENLAFAXINE HCL XR 75 MG CAP PO SCH (08:40)
[2016-11-24] MEDS: metFORMIN HCL 500 MG TAB PO SCH ×2 (08:40→17:42)
[2016-11-24] MEDS: LISINOPRIL 20 MG TAB PO SCH (08:40)
--- NOTE | 2016-11-24 13:41 | HHI.PYPN ---
Subjective Remarks Patient seen in [place] with nurse Sera, chart reviewed, patient compliant medication. Patient will continues in good spirits his depression is lifting it appears he is gaining some affect in confidence in relationship with brother and his brothers assisting him in finding placement. For now continue treatment Review of Systems Except as stated in HPI: all other systems reviewed are Neg Objective Alert: Yes [place]: Person, Place, Date, Situation Mood: Calm Affect: Appropriate Memory Intact: Immediate, Recent, Remote Hallucinations: Other (none) Delusions: No Delusion Type: Other (none) Suicidal: Ideation (fleeting) Homicidal: Ideation (denies) Insight/Judgment Poor to fair Vitals/IOs Vital Signs Date Time Temp Pulse Resp B/P Pulse Ox O2 Delivery O2 Flow Rate FiO2 11/24/16 06:19 97.8 64 16 115/62 93 Intake and Output 11/23/16 11/23/16 11/24/16 08:00 16:00 00:00 Intake Total 360 ml Balance 360 ml Assessment & Plan Problem List: (1) Major depressive disorder, recurrent severe without psychotic features ICD Code: F33.2 Assessment & Plan Estimated LOS: days patient depression continues to live, his mood and affect appear to be stabilizing. Continues with good relationship with his brother. Justification for Cont. Inpt. At this time patient will decompensate with placed in a lower level of care Discharge Planning To be determined David Ramos MD Nov 24, 2016 13:41
[2016-11-24] MEDS: LOPERAMIDE HCL 2 MG CAP PO PRN (17:42)
[2016-11-24 19:14] VITALS: BP 131/71; PULSE 77; RESP 17; TEMP 97.7; O2SAT 96
[2016-11-24] MEDS: LORazepam 1 MG TAB PO PRN (20:22)
[2016-11-24] MEDS: traZODone HCL 50 MG TAB PO SCH (20:22)
[2016-11-25 06:00] VITALS: BP 107/66; PULSE 65; RESP 16; TEMP 98.8; O2SAT 95
[2016-11-25] MEDS: ATORVASTATIN 40 MG TAB PO SCH (09:14)
[2016-11-25] MEDS: VENLAFAXINE HCL XR 75 MG CAP PO SCH (09:14)
[2016-11-25] MEDS: metFORMIN HCL 500 MG TAB PO SCH ×2 (09:14→17:32)
[2016-11-25] MEDS: LISINOPRIL 20 MG TAB PO SCH (09:15)
--- NOTE | 2016-11-25 13:32 | HHI.PYPN ---
Subjective Remarks Patient seen on unit with nurse Caceres, patient continues to coping well with the process of finding placement in relationship with his brother. His mood is somewhat labile with some mild dysphoria noted at times. He is compliant with medication. For now continue treatment Review of Systems Except as stated in HPI: all other systems reviewed are Neg Objective Alert: Yes [place]: Person, Place, Date, Situation Mood: Calm Affect: Appropriate Memory Intact: Immediate, Recent, Remote Hallucinations: Other (none) Delusions: No Delusion Type: Other (none) Suicidal: Ideation (fleeting) Homicidal: Ideation (denies) Insight/Judgment Poor Vitals/IOs Vital Signs Date Time Temp Pulse Resp B/P Pulse Ox O2 Delivery O2 Flow Rate FiO2 11/25/16 06:00 98.8 65 16 107/66 95 Assessment & Plan Problem List: (1) Major depressive disorder, recurrent severe without psychotic features ICD Code: F33.2 Assessment & Plan Estimated LOS: days patient's mood continues to improve, is coping with them processing well the issues related to his discharge and placement for now continue treatment Justification for Cont. Inpt. This time patient will decompensate the placed in a lower level of care Discharge Planning To be determined David Ramos MD Nov 25, 2016 13:32
[2016-11-25 18:24] VITALS: BP 118/74; PULSE 67; RESP 18; TEMP 98.1; O2SAT 97
[2016-11-25] MEDS: traZODone HCL 50 MG TAB PO SCH (20:35)
[2016-11-25] MEDS: LORazepam 1 MG TAB PO PRN (20:36)
[2016-11-26 05:41] VITALS: BP 129/64; PULSE 63; RESP 18; TEMP 98.4; O2SAT 95
[2016-11-26] MEDS: LISINOPRIL 20 MG TAB PO SCH (09:00)
[2016-11-26] MEDS: ATORVASTATIN 40 MG TAB PO SCH (09:01)
[2016-11-26] MEDS: VENLAFAXINE HCL XR 75 MG CAP PO SCH (09:01)
[2016-11-26] MEDS: metFORMIN HCL 500 MG TAB PO SCH ×2 (09:01→17:16)
--- NOTE | 2016-11-26 12:17 | HHI.PYPN ---
Subjective Remarks Patient was seen and case discussed with nursing. Patient is pleasant and cooperative with exam. Describes his mood is "good." Is compliant with his medications and behaving well on the unit. Eating well and sleeping well. Socializing with others. Denies suicidal ideation intent or plan Objective Alert: Yes [place]: Person, Place, Date, Situation Mood: Calm Affect: Appropriate Memory Intact: Immediate, Recent, Remote Hallucinations: Other (none) Delusions: No Delusion Type: Other (none) Suicidal: Ideation (fleeting) Homicidal: Ideation (denies) Insight/Judgment Fair Vitals/IOs Vital Signs Date Time Temp Pulse Resp B/P Pulse Ox O2 Delivery O2 Flow Rate FiO2 11/26/16 05:41 98.4 63 18 129/64 95 Assessment & Plan Problem List: (1) Major depressive disorder, recurrent severe without psychotic features ICD Code: F33.2 Assessment & Plan Continue current treatment plan Justification for Cont. Inpt. Patient will decompensate in a less restrictive setting Girma Mandel DO Nov 26, 2016 12:17
[2016-11-26 18:08] VITALS: BP 131/81; PULSE 60; RESP 15; TEMP 98.3; O2SAT 96
[2016-11-26] MEDS: traZODone HCL 50 MG TAB PO SCH (21:18)
[2016-11-26] MEDS: LORazepam 1 MG TAB PO PRN (21:18)
[2016-11-27 06:17] VITALS: BP 105/60; PULSE 59; RESP 17; TEMP 97.6; O2SAT 98
[2016-11-27] MEDS: LISINOPRIL 20 MG TAB PO SCH (09:00)
[2016-11-27] MEDS: VENLAFAXINE HCL XR 75 MG CAP PO SCH (09:00)
[2016-11-27] MEDS: metFORMIN HCL 500 MG TAB PO SCH ×2 (09:00→18:02)
[2016-11-27] MEDS: ATORVASTATIN 40 MG TAB PO SCH (09:00)
--- NOTE | 2016-11-27 14:53 | HHI.PYPN ---
Subjective Remarks Patient was seen and case discussed with nursing. Patient is pleasant and cooperative with exam. No new stressors reported. Bright and cheerful during the interview. Compliant with medications Objective Alert: Yes [place]: Person, Place, Date, Situation Mood: Calm Affect: Appropriate Memory Intact: Immediate, Recent, Remote Hallucinations: Other (none) Delusions: No Delusion Type: Other (none) Suicidal: Ideation (fleeting) Homicidal: Ideation (denies) Insight/Judgment Improving Vitals/IOs Vital Signs Date Time Temp Pulse Resp B/P Pulse Ox O2 Delivery O2 Flow Rate FiO2 11/27/16 06:17 97.6 59 17 105/60 98 Assessment & Plan Problem List: (1) Major depressive disorder, recurrent severe without psychotic features ICD Code: F33.2 Assessment & Plan Continue current treatment plan Justification for Cont. Inpt. Patient will decompensate in a less restrictive setting Girma Mandel DO Nov 27, 2016 14:53
[2016-11-27 18:07] VITALS: BP 120/76; PULSE 63; RESP 17; TEMP 97.8; O2SAT 97
[2016-11-27 18:14] LABS: ALT (GPT) 32 U/L (12-78); ANION GAP 7 MEQ/L (5-15); AST (GOT) 18 U/L (15-37); BICARBONATE 30.4 MEQ/L (21.0-32.0); BLOOD UREA NITROGEN 17 MG/DL (7-18); CHLORIDE 104 MEQ/L (98-107); GLOMERULAR FILTRATION RATE 63 ML/MIN (>89); POTASSIUM 4.2 MEQ/L (3.5-5.1); SODIUM (NA) 141 MEQ/L (136-145)
[2016-11-27 18:17] LABS: ALKALINE PHOSPHATASE 96 U/L (45-117); TOTAL BILIRUBIN ADULT 0.3 MG/DL (0.2-1.0)
[2016-11-27] MEDS: traZODone HCL 50 MG TAB PO SCH (20:09)
[2016-11-27] MEDS: LORazepam 1 MG TAB PO PRN (20:09)
[2016-11-28 06:16] VITALS: BP 112/68; PULSE 65; RESP 17; TEMP 98.2; O2SAT 98
[2016-11-28] MEDS: LISINOPRIL 20 MG TAB PO SCH (08:47)
[2016-11-28] MEDS: metFORMIN HCL 500 MG TAB PO SCH ×2 (08:47→18:00)
[2016-11-28] MEDS: LOPERAMIDE HCL 2 MG CAP PO PRN (08:47)
[2016-11-28] MEDS: ATORVASTATIN 40 MG TAB PO SCH (08:47)
[2016-11-28] MEDS: VENLAFAXINE HCL XR 75 MG CAP PO SCH (08:47)
--- NOTE | 2016-11-28 12:07 | HHI.PYPN ---
Subjective Remarks Patient seen in his room with nurse Thierry, chart review, patient compliant medications. Patient continues to cope and process well the work 2 brothers doing and helping him to get into a local [facility]. Patient continues willing to cooperate with us. For now continue treatment Review of Systems Except as stated in HPI: all other systems reviewed are Neg Objective Alert: Yes [place]: Person, Place, Date, Situation Mood: Calm Affect: Appropriate Memory Intact: Immediate, Recent, Remote Hallucinations: Other (none) Delusions: No Delusion Type: Other (none) Suicidal: Ideation (fleeting) Homicidal: Ideation (denies) Insight/Judgment Poor to fair Labs Test 11/27/16 17:06 Sodium Level 141 MEQ/L Potassium Level 4.2 MEQ/L Chloride Level 104 MEQ/L Carbon Dioxide Level 30.4 MEQ/L Anion Gap 7 MEQ/L Blood Urea Nitrogen 17 MG/DL Creatinine 1.14 MG/DL Estimat Glomerular Filtration 63 ML/MIN Rate Random Glucose 119 MG/DL Calcium Level 9.1 MG/DL Total Bilirubin 0.3 MG/DL Aspartate Amino Transf 18 U/L (AST/SGOT) Alanine Aminotransferase 32 U/L (ALT/SGPT) Alkaline Phosphatase 96 U/L Total Protein 7.1 GM/DL Albumin 3.2 GM/DL Vitals/IOs Vital Signs Date Time Temp Pulse Resp B/P Pulse Ox O2 Delivery O2 Flow Rate FiO2 11/28/16 06:16 98.2 65 17 112/68 98 Assessment & Plan Problem List: (1) Major depressive disorder, recurrent severe without psychotic features ICD Code: F33.2 Assessment & Plan Estimated LOS: days patient is depression continues to slowly lift. [place] compliance with medication and cooperation with for to find appropriate placement, working with his brother Justification for Cont. Inpt. At this time patient will decompensate if placed in a lower level of care Discharge Planning To be determined David Ramos MD Nov 28, 2016 12:07
--- NOTE | 2016-11-28 14:08 | PD.TTN ---
Present for Treatment Team Treatment Team Staff: Provider, Psych Therapist, Clinical Specialist Patient Problems 1. Discharge planning 2. Medication compliance 3. Knowledge deficit 4. Lack of coping skills Progress Toward Goals Provider Input: Dr. Ramos's treatment team met to discuss patient's treatment plan, medication and discharge plan. Patient continues to be no behavioral problem on unit. Medication compliant. No change in treatment Nurse Input: Patient's nurse Ramesh reports patient is no behavioral issues, medication compliant, still has suicidal ideation with plan Psych Therapist Input: Patient reports he is feeling well. Patient denies suicidal and homicidal ideation. patient states he is eating, sleeping well. Patient made good eye contact. Patient's speech is clear, organized, and appropriate. Patient's tone, rate, and volume were in the normal range. Patient does not present internally stimulated or with any delusional content. Placement has been found for patient, waiting on paperwork to go through. Clinical Specialist Input: Jeannie [employer] reports patient attends select groups activities with good participation. Flor KingI Nov 28, 2016 14:07
[2016-11-28 18:08] VITALS: BP 132/78; PULSE 59; RESP 17; TEMP 97.6; O2SAT 97
[2016-11-28] MEDS: LORazepam 1 MG TAB PO PRN (20:54)
[2016-11-28] MEDS: traZODone HCL 50 MG TAB PO SCH (20:54)
[2016-11-29 06:07] VITALS: BP 123/68; PULSE 67; RESP 17; TEMP 98.4; O2SAT 96
[2016-11-29] MEDS: metFORMIN HCL 500 MG TAB PO SCH ×2 (08:31→18:00)
[2016-11-29] MEDS: LISINOPRIL 20 MG TAB PO SCH (08:31)
[2016-11-29] MEDS: VENLAFAXINE HCL XR 75 MG CAP PO SCH (08:31)
[2016-11-29] MEDS: ATORVASTATIN 40 MG TAB PO SCH (08:31)
--- NOTE | 2016-11-29 12:33 | HHI.PYPN ---
Subjective Remarks Patient seen in day room with nurse Hernandez, chart review, patient compliant medication. Patient will continues to improve he is pleased with his ship with his [id number] brother is helping him to arrange for placement. Patient denies suicidality homicidality voices or visions. For now continue treatment Review of Systems Except as stated in HPI: all other systems reviewed are Neg Objective Alert: Yes [place]: Person, Place, Date, Situation Mood: Calm Affect: Appropriate Memory Intact: Immediate, Recent, Remote Hallucinations: Other (none) Delusions: No Delusion Type: Other (none) Suicidal: Ideation (denies) Homicidal: Ideation (denies) Insight/Judgment Poor Vitals/IOs Vital Signs Date Time Temp Pulse Resp B/P Pulse Ox O2 Delivery O2 Flow Rate FiO2 11/29/16 06:07 98.4 67 17 123/68 96 Intake and Output 11/28/16 11/28/16 11/29/16 08:00 16:00 00:00 Intake Total 480 ml Balance 480 ml Assessment & Plan Problem List: (1) Major depressive disorder, recurrent severe without psychotic features ICD Code: F33.2 Assessment & Plan Patient's depression is slowly lifting. He is processing at coping well with issues related to possible placement. For now continue treatment Justification for Cont. Inpt. At this time patient will decompensate then placed in the lower level of care Discharge Planning To be determined David Ramos MD Nov 29, 2016 12:33
[2016-11-29] MEDS: LORazepam 1 MG TAB PO PRN (21:11)
[2016-11-29] MEDS: traZODone HCL 50 MG TAB PO SCH (21:11)
[2016-11-30 06:17] VITALS: BP 129/80; PULSE 58; RESP 17; TEMP 99.4; O2SAT 96
[2016-11-30] MEDS: ATORVASTATIN 40 MG TAB PO SCH (09:00)
[2016-11-30] MEDS: VENLAFAXINE HCL XR 75 MG CAP PO SCH (09:28)
[2016-11-30] MEDS: LISINOPRIL 20 MG TAB PO SCH (09:28)
[2016-11-30] MEDS: metFORMIN HCL 500 MG TAB PO SCH ×2 (09:28→18:21)
--- NOTE | 2016-11-30 14:15 | HHI.PYPN ---
Subjective Remarks Patient seen in day room with nurse Sera, chart reviewed. Patient calm cooperative and pleasant his motorcycle lifting [place] anxiety related to placement issues for now continue treatment Review of Systems Except as stated in HPI: all other systems reviewed are Neg Objective Alert: Yes [place]: Person, Place, Date, Situation Mood: Calm Affect: Appropriate Memory Intact: Immediate, Recent, Remote Hallucinations: Other (none) Delusions: No Delusion Type: Other (none) Suicidal: Ideation (denies) Homicidal: Ideation (denies) Insight/Judgment Poor to fair Vitals/IOs Vital Signs Date Time Temp Pulse Resp B/P Pulse Ox O2 Delivery O2 Flow Rate FiO2 11/30/16 06:17 99.4 58 17 129/80 96 Intake and Output 11/29/16 11/29/16 11/30/16 08:00 16:00 00:00 Intake Total 240 ml Balance 240 ml Assessment & Plan Problem List: (1) Major depressive disorder, recurrent severe without psychotic features ICD Code: F33.2 Assessment & Plan Estimated LOS: days patient depression continues to lift, though this of anxiety related to placement issues he is coping well with that. For now continue treatment Justification for Cont. Inpt. At this time patient will decompensate placed a lower level of care Discharge Planning To be determined David Ramos MD Nov 30, 2016 14:15
[2016-11-30 18:01] VITALS: BP 122/73; PULSE 58; RESP 19; TEMP 97.4; O2SAT 97
[2016-11-30] MEDS: traZODone HCL 50 MG TAB PO SCH (20:03)
[2016-11-30] MEDS: LORazepam 1 MG TAB PO PRN (20:03)
[2016-12-01 05:31] VITALS: BP 118/78; PULSE 57; RESP 16; TEMP 97.3
[2016-12-01 08:39] VITALS: BP 124/60; PULSE 55; TEMP 97.5; O2SAT 97
[2016-12-01] MEDS: metFORMIN HCL 500 MG TAB PO SCH ×2 (08:44→17:24)
[2016-12-01] MEDS: VENLAFAXINE HCL XR 75 MG CAP PO SCH (08:44)
[2016-12-01] MEDS: ATORVASTATIN 40 MG TAB PO SCH (08:44)
[2016-12-01] MEDS: LISINOPRIL 20 MG TAB PO SCH (08:45)
--- NOTE | 2016-12-01 10:55 | HHI.PYPN ---
Subjective Remarks Patient seen in his room with nurse Liliana, chart reviewed, patient compliant medication. Continues to cope with issues related to placement. Continues to denies suicidality homicidality voices or visions Review of Systems Except as stated in HPI: all other systems reviewed are Neg Objective Alert: Yes [place]: Person, Place, Date, Situation Mood: Calm Affect: Appropriate Memory Intact: Immediate, Recent, Remote Hallucinations: Other (none) Delusions: No Delusion Type: Other (none) Suicidal: Ideation (denies) Homicidal: Ideation (denies) Insight/Judgment Poor Vitals/IOs Vital Signs Date Time Temp Pulse Resp B/P Pulse Ox O2 Delivery O2 Flow Rate FiO2 12/01/16 08:39 97.5 55 124/60 97 12/01/16 05:31 16 Intake and Output 11/30/16 11/30/16 12/01/16 08:00 16:00 00:00 Intake Total 600 ml 360 ml Balance 600 ml 360 ml Assessment & Plan Problem List: (1) Major depressive disorder, recurrent severe without psychotic features ICD Code: F33.2 Assessment & Plan Estimated LOS: days patient continues to show improvement in his depression, coping skills are good related to placement issues. For now continue treatment Justification for Cont. Inpt. At this time patient will decompensate if placed in a lower level of care Discharge Planning To be determined David Ramos MD Dec 01, 2016 10:55
[2016-12-01 16:06] VITALS: BP 127/85; PULSE 70; RESP 17; TEMP 97.5; O2SAT 95
[2016-12-01] MEDS: traZODone HCL 50 MG TAB PO SCH (20:42)
[2016-12-01] MEDS: LORazepam 1 MG TAB PO PRN (20:42)
[2016-12-02 05:28] VITALS: BP 113/56; PULSE 60; RESP 16; TEMP 97.4; O2SAT 93
[2016-12-02] MEDS: VENLAFAXINE HCL XR 75 MG CAP PO SCH (08:36)
[2016-12-02] MEDS: metFORMIN HCL 500 MG TAB PO SCH (08:36)
[2016-12-02] MEDS: ATORVASTATIN 40 MG TAB PO SCH (08:36)
[2016-12-02] MEDS: LISINOPRIL 20 MG TAB PO SCH (08:36)
[2016-12-02] MEDS ORDERED: VENL75XR PO (08:41)
[2016-12-02] MEDS ORDERED: LISI-515 PO (08:41)
[2016-12-02] MEDS ORDERED: METF500 PO (08:41)
[2016-12-02] MEDS ORDERED: ATOR40TA16 PO (08:41)
[2016-12-02] MEDS ORDERED: TRAZ50TA12 PO (08:41)
--- NOTE | 2016-12-02 08:45 | HHI.DS ---
Psychiatry Discharge Summary Inpatient Psychiatric care?: Yes Advance Directive: No Reason Not Provided: DOES NOT HAVE Mental Health AdvanceDirective: No Health Care Proxy: No Admission Admission Date November 04, 2016 at 15:41 Admission Diagnosis: (1) Major depressive disorder, recurrent severe without psychotic features ICD Code: F33.2 Brief [address] As per [address] Aragon documentation in the ER; 71-year-old male who was released from the hospital here at [facility], psychiatry unit, less than one day ago. Patient was Gilman acted for threatening to shoot himself. Patient admits he did this but also admits he does not have a gun at home. Apparently the gun is either with a neighbor or with law enforcement. Patient admits to multiple symptoms of depressed mood, anhedonia, suicidal ideation, diminished energy, social withdrawal, and anxiety. This physician spent approximately 1 hour with patient discussing various options, including readmitting patient, stabilizing him on medication and finding placement for him in an adult living facility. Patient was vehemently against that idea. We then called patient's brother to see if patient could move to [place]. Patient's brother states patient is financially irresponsible even though he has a income of $2000 per month. Patient's brother does not want patient to move to the [place] area and brother risks tired of caring for patient. This physician spoke to patient about returning home and always having the option of returning to ED if it does not work out at home. Patient chose this option and again remarks "I would never kill myself". Patient seen by me today, he reports sad mood, low energy, low appetite, difficulty sleeping last night, suicidal thoughts, but no intention or plan. Patient is able to contract for safety in the unit. Patient says that he does not feel safe to be in the street by himself. He says that once he was discharged recurrent and persistent suicidal thoughts came up to his mind and he was very afraid. At this moment he denies homicidal ideation, he denies visual and auditory hallucinations. She is oriented 3, no attention deficit, no gross cognitive impairment present. 11/08/16 Above note dictated initially by Dr. Bautista noted and agreed with also Dr. Aragon's notes from the ED reviewed and agreed with. Patient seen by me on 2600 with nurse Ludivina Freeman. Patient remains depressed tearful making some excuses for the suicide note though reviewing of his multiple visits through our hospital show his persistent depression. He is somewhat vague about suicidality at this time. Dr. Aragon #first opinion petition supporting Gilman act. I agree. Patient meets criteria for involuntary psychiatric hospitalization under the Gilman act area thus I'll cosign second opinion supporting Gilman act Tobacco Use In Past 30 Days: No Tobacco Past 30 Days Alcohol Use: Never Hospital Course Patient's course in the hospital showed slow improvement related to his compliant with medication and participation in milieu. His initial depression hopelessness frustration with his life slowly resolved. Of importance also was the fact that his brother became more involved with his care finances and finding an appropriate placement. Patient is compliant with medications he denies suicidality homicidality voices or visions. Is excited about going to the [facility] giving him a stability so that he can then address the issues related to repair of his right ankle. Thus patient be discharged today to [facility] with Rx 1 month the follow-up Rivera pitts Results Blood Pressure 113 / 56 Vital Signs Date Time Temp Pulse Resp B/P Pulse Ox O2 Delivery O2 Flow Rate FiO2 12/02/16 05:28 97.4 60 16 113/56 93 Please see EMR for full lab results Summary of Procedures None done Pending results at discharge: No Medications # of Antipsychotic meds at D/C: 0 Approp Antipsych med options 1 - Minimum of three failed multiple trials of monotherapy. 2 - Documented plan to taper to monotherapy due to previous use of multiple meds OR cross-taper in progress at D/C. 3 - Documentation of augmentation of Clozapine. 4 - Justification other than those listed in allowable values 1-3, document here : Discharge Discharge Date: Dec 02, 2016 Discharge Diagnosis: (1) Major depressive disorder, recurrent severe without psychotic features Diagnosis: Principal ICD Code: F33.2 Mental Status Exam at Disch Alert oriented white male sitting in wheelchair, calm cooperative. He is normal active. He is euthymic with good range intensity of his affect. Speech rate and rhythm are within normal limits though no formal thought disorders. No auditory or visual hallucinations. No delusions. Insight and judgment is poor to fair cognition grossly intact Pt Condition on Discharge: Stable Discharge Disposition: [facility] Discharge Instructions Diet Instructions: As Tolerated, No Restrictions Activities you can perform: Regular-No Restrictions Scheduled Appointment: [facility] Appointment Date: Dec 05, 2016 Appointment Time: 7:30am Discharge Time > 30 minutes Discharge/Advance Care Plan Health Problems: (1) Major depressive disorder, recurrent severe without psychotic features Goals to promote your health * To prevent worsening of your condition and complications * To maintain your health at the optimal level Directions to meet your goals Take your medications as prescribed Follow your dietary instruction Follow activity as directed Keep your appointments as scheduled Take your immunizations and boosters as scheduled If your symptoms worsen call your PCP, if no PCP go to Urgent Care Center or Emergency Room For 09/01 questions related to your inpatient stay or results of tests pending at discharge, please contact Dr. David Ramos at Smoking is Dangerous to Your Health. Avoid second hand smoking David Ramos MD Dec 02, 2016 08:45
== END 2016-12-02 10:45 | DRG 885 ==
LOC: NEPD 22:29 → NEDA 11-04 15:41 → H260 11-04 17:00
PROVIDERS: ADMIT Psychiatry & Neurology Psychiatry; ATTEND Psychiatry & Neurology Psychiatry
DX: F33.2 Major depressive disorder, recurrent severe without psychotic features (principal); E11.9 Type 2 diabetes mellitus without complications; R45.851 Suicidal ideations; F43.21 Adjustment disorder with depressed mood; F41.9 Anxiety disorder, unspecified; I10 Essential (primary) hypertension; E78.00 Pure hypercholesterolemia, unspecified; Z87.891 Personal history of nicotine dependence
CPT/HCPCS: 80048; 80053; 80061; 82948; 83036; 99285